=== PATIENT | female | born 1945 | race Caucasian/White ===

== ENCOUNTER 2024-01-14 09:27 | Inpatient (IN) ==
--- NOTE | 2024-01-14 09:55 | EKG ---
Test Reason : tachy Blood Pressure : */* mmHG Vent. Rate : 140 BPM Atrial Rate : * BPM P-R Int : * ms QRS Dur : 82 ms QT Int : 260 ms P-R-T Axes : * 2 257 degrees QTc Int : 396 ms Atrial fibrillation with rapid ventricular response Nonspecific ST and T wave abnormality Abnormal ECG No previous ECGs available Confirmed by Mikel Orantes MD ([id number]) on 01/14/2024 10:37:04 AM Referred By: Confirmed By: Mikel Orantes MD
--- NOTE | 2024-01-14 09:57 | DR.SOBA ---
HPI Time Seen Time Seen by Provider: 01/14/24 09:45 Primary Care Physician Primary Care Physician: kobe morrow Complaints Chief Complaint Doctors Comments: 78-year-old female presents for evaluation. Patient feeling poorly over the past week. Has had a pain of the right side of the chest/abdomen, off and on. Having difficulty sleeping with it. Having palpitations since yesterday. Having shortness of breath since yesterday. Shortness of breath worse with exertion. Does have swelling of her legs, over the past month. Not coughing much. Denies fevers or chills. No sinus congestion, sore throat. No bowel or bladder issues. Does have a history of atrial fibrillation, has a pacemaker. Chief Complaint:: Patient c/o of sob with exertion for a week now along with sobeida lower ext swelling that has been going on for a month now nauseous/ decrease appetite. pain in her ruq area that has been coming and going for years now states she was told 30 years ago she had a bad gallbladder but never got it seen about. COVID-19 Coronavirus risk:travel/contact w/high risk person: No Has patient experienced Coronavirus symptoms: No Reviewed Nurses Notes Reviewed: Yes Source History Provided: Patient Mode of Arrival Mode of Arrival: Wheelchair Timing Onset of Chief Complaint: 01/07/24 PMH PMH Past Medical History: Yes Past Medical History: Hypertension Past Medical History Comment: a-fib,fibermyalgia, pacemaker Past Surgical History: Yes Surgical History: Tonsillectomy Past Surgical History Comment: pacemaker, cataracts sobeida eyes Family History History of Family Medical Conditions: Yes Family Medical History: Diabetes Mellitus, Heart Failure and Hypertension Social History Does patient currently use any type of tobacco product: No Have you used tobacco products in the last 12 months: No Type of Tobacco Use: None Does any household member use tobacco: No Alcohol Use: None Do you use any recreational Drugs:: No Lives With: Family Lives Where: Home Travel Risk Coronavirus risk:travel/contact w/high risk person: No Has patient experienced Coronavirus symptoms: No Infectious screening In the last 2 months have you had wt loss of >10#?: NO Have you had fever, night sweats or hemotysis?: No Have you traveled outside the country in the last 6 months?: No Isolation: Standard ROS Review of Systems Constitutional: Weakness Eyes: No Symptoms Reported ENTM: No Symptoms Reported Respiratoy: Short of Breath Cardiovascular: Edema and Palpitations Gastrointestinal/Abdominal: No Symptoms Reported Genitourinary: No Symptoms Reported Neurological: Weakness Musculoskeletal: No Symptoms Reported Integumentary: No Symptoms Reported Hematologic/Lymphatic: No Symptoms Reported All Other Systems: Reviewed and Negative PE Vital Signs Vitals: Vital Signs Temperature 98.1 F Pulse Rate 118 Pulse Rate 104 Pulse Rate 105 Pulse Rate 101 Pulse Rate 130 Pulse Rate 123 Pulse Rate 129 Pulse Rate 124 Pulse Rate 127 Pulse Rate 135 Pulse Rate 125 Pulse Rate 109 Pulse Rate 113 Pulse Rate 113 Pulse Rate 120 Pulse Rate 118 Pulse Rate 108 Pulse Rate 111 Pulse Rate 116 Pulse Rate 107 Pulse Rate 105 Pulse Rate 108 Pulse Rate 115 Pulse Rate 144 Pulse Rate 145 Respiratory Rate 31 Respiratory Rate 15 Respiratory Rate 10 Respiratory Rate 12 Respiratory Rate 8 Respiratory Rate 12 Respiratory Rate 12 Respiratory Rate 13 Respiratory Rate 10 Respiratory Rate 24 Respiratory Rate 25 Respiratory Rate 8 Respiratory Rate 17 Respiratory Rate 13 Respiratory Rate 11 Respiratory Rate 21 Respiratory Rate 13 Respiratory Rate 10 Respiratory Rate 22 Blood Pressure 103/52 Blood Pressure 99/57 Blood Pressure 95/53 Blood Pressure 92/53 Blood Pressure 92/53 Blood Pressure 96/52 Blood Pressure 96/52 Blood Pressure 93/52 Blood Pressure 93/52 Blood Pressure 96/58 Blood Pressure 91/63 Blood Pressure 98/51 Blood Pressure 90/57 Blood Pressure 103/50 Blood Pressure 103/50 Blood Pressure 88/50 Blood Pressure 96/62 Blood Pressure 84/50 Blood Pressure 81/52 Blood Pressure 96/52 Blood Pressure 91/64 Blood Pressure 98/56 O2 Sat by Pulse Oximetry 99 O2 Sat by Pulse Oximetry 100 O2 Sat by Pulse Oximetry 100 O2 Sat by Pulse Oximetry 100 O2 Sat by Pulse Oximetry 100 O2 Sat by Pulse Oximetry 100 O2 Sat by Pulse Oximetry 100 O2 Sat by Pulse Oximetry 100 O2 Sat by Pulse Oximetry 100 O2 Sat by Pulse Oximetry 100 O2 Sat by Pulse Oximetry 100 O2 Sat by Pulse Oximetry 100 O2 Sat by Pulse Oximetry 100 O2 Sat by Pulse Oximetry 100 O2 Sat by Pulse Oximetry 100 O2 Sat by Pulse Oximetry 100 O2 Sat by Pulse Oximetry 100 O2 Sat by Pulse Oximetry 99 O2 Sat by Pulse Oximetry 100 O2 Sat by Pulse Oximetry 100 O2 Sat by Pulse Oximetry 100 O2 Sat by Pulse Oximetry 100 O2 Sat by Pulse Oximetry 99 O2 Sat by Pulse Oximetry 100 General General Appearance: Alert and In No Apparent Distress Eyes Eye exam: PERRL and EOMI ENT ENT Exam: Normal Exam Neck Neck Exam: Normal Inspection Respiratory Respiratory Exam: Other (+ slight rales R base) Cardiovascular Cardiovascular Exam: Tachycardia Abdominal Exam Abdominal Exam: Normal Bowel Sounds and Soft; negative Tenderness Extremities Extremities Exam: Edema (2-3+, bilateral lower exts) Back Back Exam: Normal Inspection Neurologic Neurological Exam: Alert, Oriented X3 and CN II-XII Intact; negative Motor Sensory Deficit Skin Skin Exam: Warm and Dry COURSE Treatment Treatment: 78-year female with palpitations and shortness of breath. Patient presents with atrial fibrillation rapid ventricular response. Heart rate running in the 140s. Patient given 10 mg of IV Cardizem with good effect. Heart rate down to the low 100s. Chest x-ray without significant pulmonary vascular congestion. Hgb low at 5. Pt was told she had anemia, taking iron. Stools have been dark, pt thought from iron. Will admit for transfusion. Additional cardizem given for rate control. Added IV metoprolol (didn't take her po metoprolol today). Also with UTI, given IV rocephin. Discussed with covering MD, Dr Doan accepts the admission. [facility] Labs Reviewed Laboratory Results Reviewed?: Yes 01/14/24 10:05 01/14/24 10:05 Laboratory: WBC 7.7 X10^3/uL (3.6-10.0) 01/14/24 10:05 RBC 1.60 X10^6/uL (3.5-5.4) L 01/14/24 10:05 Hgb 5.0 g/dL (12.0-16.0) L* 01/14/24 10:05 Hct 15.1 % (36.0-47.0) L* 01/14/24 10:05 MCV 94.1 fL (80.0-100.0) 01/14/24 10:05 MCH 31.3 pg (27.0-34.0) 01/14/24 10:05 MCHC 33.2 g/dL (33.0-35.0) 01/14/24 10:05 RDW 19.4 % (11.6-16.5) H 01/14/24 10:05 Plt Count 212 X10^3/uL (150.0-450.0) 01/14/24 10:05 MPV 10.7 fL (7.4-11.0) 01/14/24 10:05 Neut % (Auto) 69.9 % (42.0-75.0) 01/14/24 10:05 Lymph % (Auto) 21.3 % (21.0-51.0) 01/14/24 10:05 [place] % (Auto) 7.1 % (0.0-13.0) 01/14/24 10:05 Eos % (Auto) 0.8 % (0.9-2.9) L 01/14/24 10:05 Baso % (Auto) 0.9 % (0.2-1.0) 01/14/24 10:05 Neut # (Auto) 5.4 x10^3/uL (2.2-4.8) H 01/14/24 10:05 Lymph # (Auto) 1.6 X10^3/uL (1.3-2.9) 01/14/24 10:05 [place] # (Auto) 0.5 x10^3/uL (0.3-0.8) 01/14/24 10:05 Eos # (Auto) 0.1 x10^3/uL (0.0-0.2) 01/14/24 10:05 Baso # (Auto) 0.1 X10^3/uL (0.0-0.1) 01/14/24 10:05 Absolute Nucleated RBC 0.1 /100WBC 01/14/24 10:05 Sodium 142 mmol/L (136-145) 01/14/24 10:05 Corrected Sodium 143 mmol/L (136-145) 01/14/24 10:05 Potassium 3.9 mmol/L (3.5-5.1) 01/14/24 10:05 Chloride 106 mmol/L (98-107) 01/14/24 10:05 Carbon Dioxide 30.5 mmol/L (21-32) 01/14/24 10:05 BUN 39 mg/dL (7-18) H 01/14/24 10:05 Creatinine 1.66 mg/dL (0.55-1.02) H 01/14/24 10:05 Est GFR (MDRD) Af Amer 39 (>60) L 01/14/24 10:05 Est GFR (MDRD) Non-Af 32 (>60) L 01/14/24 10:05 Glucose 138 mg/dL (65-99) H 01/14/24 10:05 Calcium 7.7 mg/dL (8.5-10.1) L 01/14/24 10:05 Corrected Calcium 9.4 mg/dL (8.5-10.1) 01/14/24 10:05 Total Bilirubin 1.00 mg/dL (0.2-1.0) 01/14/24 10:05 AST 35 Units/L (15-37) 01/14/24 10:05 ALT 17 Units/L (12-78) 01/14/24 10:05 Alkaline Phosphatase 64 Units/L (46-116) 01/14/24 10:05 Creatine Kinase 51 Units/L (26-192) 01/14/24 10:05 Troponin I High Sens 12.0 ng/L (4.0-60.0) 01/14/24 10:05 B-Natriuretic Peptide 301 pg/mL (0-79) H 01/14/24 10:05 Total Protein 5.6 g/dL (6.4-8.2) L 01/14/24 10:05 Albumin 1.9 g/dL (3.4-5.0) L 01/14/24 10:05 Globulin 3.7 g/dL (2.5-4.5) 01/14/24 10:05 Albumin/Globulin Ratio 0.5 Ratio (1.1-2.1) L 01/14/24 10:05 Specimen Type Clean catch urine 01/14/24 11:48 Urine Color Yellow (YELLOW) 01/14/24 11:48 Urine Appearance Hazy (CLEAR) 01/14/24 11:48 Urine pH 5.0 (5.0 - 8.0) 01/14/24 11:48 Ur Specific [place] 1.015 (1.000-1.030) 01/14/24 11:48 Urine Protein 2+ (NEGATIVE) 01/14/24 11:48 Urine Glucose (UA) Negative (NEGATIVE) 01/14/24 11:48 Urine Ketones Negative (NEGATIVE) 01/14/24 11:48 Urine Blood 1+ (NEGATIVE) 01/14/24 11:48 Urine Nitrite Negative (NEGATIVE) 01/14/24 11:48 Urine Bilirubin Negative (NEGATIVE) 01/14/24 11:48 Urine Urobilinogen Normal (NORMAL) 01/14/24 11:48 Ur Leukocyte Esterase 3+ (NEGATIVE) 01/14/24 11:48 Urine RBC 3-5 /HPF (0-3) A 01/14/24 11:48 Urine WBC 20-30 /HPF (0-5) A 01/14/24 11:48 Ur Squamous Epith Cells Rare /HPF (NEGATIVE) 01/14/24 11:48 Amorphous Sediment 1+ /HPF (NEGATIVE) 01/14/24 11:48 Urine Bacteria 1+ /HPF (NEGATIVE) 01/14/24 11:48 Urine Mucus Rare /HPF (NEGATIVE) 01/14/24 11:48 Ur Culture Indicated? Yes/culture set up 01/14/24 11:48 Blood Type A POSITIVE 01/14/24 10:25 Antibody Screen Negative 01/14/24 10:25 Crossmatch See Detail 01/14/24 10:25 Hgb 5.0, + UTI. XRAY XRAY Interpreted by: Both X-ray Results: EXAM: CHEST, 1 VIEW HISTORY: Shortness of Breath; COMPARISON: No relevant prior studies were available for comparison at the time of interpretation. TECHNIQUE: CHEST, 1 VIEW FINDINGS: Chest: Lines and tubes: Left-sided pacemaker generator with lead or leads in satisfactory position. Mediastinum: Cardiac and mediastinal shadow is within normal limits for size and contour. Pulmonary vessels: No pulmonary vascular congestion. Lung fowler: No suspicious airspace opacity. Pleura: No effusion. No pneumothorax. Bones and soft tissues: No acute osseous or soft tissue abnormality. IMPRESSION: 1. No acute cardiopulmonary abnormality THIS IS AN ELECTRONICALLY VERIFIED FINAL REPORT 01/14/2024 10:51 AM - Electronically signed by Reinaldo Thompson MD EKG Rate: 140 [place]: Normal Rhythm: Afib (w/RVR) ST: Nonsp Opioid Opioid Risk Tool Age (Ishaan box if 16-45): No History of Preadolescent Sexual Abuse: No Total: 0 Total Score Risk Category: Low Risk Copyright: Serjio CHASE predicting aberrant behaviors Discharge Plan Diagnosis Discharge Problem: Symptomatic anemia, Atrial fibrillation with rapid ventricular response Discharge Plan Patient Disposition: ADMITTED INPATIENT Condition: Stable Orders to Discharge Patient Discharge Orders: Transfer (Routine); Ordered 01/14/24 Ordered By: Lenard Mendoza
[2024-01-14] MEDS: CARDIZEM INJ 50 MG VIAL IVP ONE ×2 (10:07→12:28)
[2024-01-14] MEDS: NS 500 ML IV 500 ML IV SCH (10:08)
[2024-01-14 10:29] LABS: ALBUMIN 1.9 g/dL (3.4-5.0); CALCIUM 7.7 mg/dL (8.5-10.1); CARBON DIOXIDE 30.5 mmol/L (21-32); COR CA(FOR HYPOALB) 9.4 mg/dL (8.5-10.1); CREATININE 1.66 mg/dL (0.55-1.02); POTASSIUM 3.9 mmol/L (3.5-5.1); TOTAL PROTEIN 5.6 g/dL (6.4-8.2)
[2024-01-14 10:36] LABS: BASOPHILS # (AUTO) 0.1 X10^3/uL (0.0-0.1); BASOPHILS % (AUTO) 0.9 % (0.2-1.0); EOSINOPHILS # (AUTO) 0.1 x10^3/uL (0.0-0.2); EOSINOPHILS % (AUTO) 0.8 % (0.9-2.9); LYMPHOCYTES # (AUTO) 1.6 X10^3/uL (1.3-2.9); LYMPHOCYTES % (AUTO) 21.3 % (21.0-51.0); MEAN CORPUSCULAR HEMOGLOBIN 31.3 pg (27.0-34.0); MEAN CORPUSCULAR HGB CONC 33.2 g/dL (33.0-35.0); MEAN CORPUSCULAR VOLUME 94.1 fL (80.0-100.0); MEAN PLATELET VOLUME 10.7 fL (7.4-11.0); MONOCYTES # (AUTO) 0.5 x10^3/uL (0.3-0.8); MONOCYTES % (AUTO) 7.1 % (0.0-13.0); NEUTROPHILS # (AUTO) 5.4 x10^3/uL (2.2-4.8); NEUTROPHILS % (AUTO) 69.9 % (42.0-75.0); PLATELET COUNT 212 X10^3/uL (150.0-450.0); RED CELL DISTRIBUTION WIDTH 19.4 % (11.6-16.5); WHITE BLOOD COUNT 7.7 X10^3/uL (3.6-10.0)
[2024-01-14 10:38] LABS: HEMATOCRIT 15.1 % (36.0-47.0)
--- NOTE | 2024-01-14 10:54 | RAD ---
EXAM:CHEST, 1 VIEWHISTORY:Shortness of Breath;COMPARISON:No relevant prior studies were available for comparison at the time of interpretation.TECHNIQUE:CHEST, 1 VIEWFINDINGS:Chest:Lines and tubes: Left-sided pacemaker generator with lead or leads in satisfactory position.Mediastinum: Cardiac and mediastinal shadow is within normal limits for size and contour.Pulmonary vessels: No pulmonary vascular congestion.Lung fowler: No suspicious airspace opacity.Pleura: No effusion. No pneumothorax.Bones and soft tissues: No acute osseous or soft tissue abnormality.IMPRESSION:1. No acute cardiopulmonary abnormalityTHIS IS AN ELECTRONICALLY VERIFIED FINAL REPORT01/14/2024 10:51 AM - Electronically signed by Reinaldo Thompson MD
[2024-01-14 12:00] LABS: BILIRUBIN,URINE NEGATIVE (NEGATIVE); BLOOD/HEMOGLOBIN,URINE 1+ (NEGATIVE); GLUCOSE, URINE NEGATIVE (NEGATIVE); KETONES,URINE NEGATIVE (NEGATIVE); LEUKOCYTE ESTERASE ,URINE 3+ (NEGATIVE); NITRITES,URINE NEGATIVE (NEGATIVE); PROTEIN,URINE 2+ (NEGATIVE); UROBILINOGEN,URINE NORMAL (NORMAL)
[2024-01-14 12:03] LABS: APPEARANCE,URINE HAZY (CLEAR); COLOR,URINE YELLOW (YELLOW)
[2024-01-14 12:08] LABS: SQUAMOUS EPITHELIAL CELL,UR RARE /HPF (NEGATIVE)
[2024-01-14 12:09] LABS: BACTERIA,URINE 1+ /HPF (NEGATIVE)
[2024-01-14] MEDS: ROCEPHIN VIAL 1 GRAM IVP ONE (12:28)
[2024-01-14] MEDS: LOPRESSOR INJ 5 MG AMP IVP ONE (13:01)
[2024-01-14] MEDS ORDERED: TOPROL XL PO ONE (14:30)
[2024-01-14] MEDS: TOPROL XL PO SCH (15:06)
[2024-01-14] MEDS: NS 500 ML IV 500 ML IV ONE (15:07)
[2024-01-14 15:43] VITALS: BMI 33.7
[2024-01-14] MEDS ORDERED: TYLENOL 325 MG TAB PO PRN (16:38)
[2024-01-14] MEDS: ROCEPHIN VIAL 1 GRAM 1 G in NS 100 ML IV 100 ML IV SCH (16:40)
[2024-01-14] MEDS: MAG-OX TAB PO SCH (20:20)
[2024-01-14] MEDS: XARELTO PO SCH (20:21)
[2024-01-14] MEDS: RESTORIL CAP 15 MG PO PRN (21:20)
[2024-01-15 00:09] LABS: HEMATOCRIT 19.3 % (36.0-47.0); HEMOGLOBIN 6.4 g/dL (12.0-16.0)
[2024-01-15] MEDS: NS 500 ML IV 1,000 ML IV SCH (05:03)
[2024-01-15 05:19] LABS: EOSINOPHILS # (AUTO) 0.1 x10^3/uL (0.0-0.2); MEAN CORPUSCULAR VOLUME 90.6 fL (80.0-100.0); MONOCYTES # (AUTO) 0.6 x10^3/uL (0.3-0.8); NEUTROPHILS # (AUTO) 4.3 x10^3/uL (2.2-4.8)
[2024-01-15 05:25] LABS: BASOPHILS # (AUTO) 0.1 X10^3/uL (0.0-0.1); BASOPHILS % (AUTO) 0.8 % (0.2-1.0); EOSINOPHILS % (AUTO) 1.7 % (0.9-2.9); LYMPHOCYTES # (AUTO) 1.9 X10^3/uL (1.3-2.9); LYMPHOCYTES % (AUTO) 27.1 % (21.0-51.0); MEAN CORPUSCULAR HEMOGLOBIN 30.5 pg (27.0-34.0); MEAN CORPUSCULAR HGB CONC 33.7 g/dL (33.0-35.0); MEAN PLATELET VOLUME 10.9 fL (7.4-11.0); MONOCYTES % (AUTO) 8.5 % (0.0-13.0); NEUTROPHILS % (AUTO) 61.9 % (42.0-75.0); PLATELET COUNT 168 X10^3/uL (150.0-450.0); RED BLOOD COUNT 1.96 X10^6/uL (3.5-5.4); RED CELL DISTRIBUTION WIDTH 18.3 % (11.6-16.5); WHITE BLOOD COUNT 6.9 X10^3/uL (3.6-10.0)
[2024-01-15 05:32] LABS: ALANINE AMINOTRANSFERASE 15 Units/L (12-78); ALBUMIN 1.7 g/dL (3.4-5.0); ALKALINE PHOSPHATASE 50 Units/L (46-116); ASPARTATE AMINO TRANSFERASE 31 Units/L (15-37); BLOOD UREA NITROGEN 39 mg/dL (7-18); CALCIUM 7.6 mg/dL (8.5-10.1); CARBON DIOXIDE 30.6 mmol/L (21-32); CHLORIDE 108 mmol/L (98-107); COR CA(FOR HYPOALB) 9.4 mg/dL (8.5-10.1); CREATININE 1.56 mg/dL (0.55-1.02); GLUCOSE 104 mg/dL (65-99); MAGNESIUM 2.6 mg/dL (2.0-2.9); POTASSIUM 3.9 mmol/L (3.5-5.1); SODIUM 143 mmol/L (136-145); eGFR NON BLACK RACES 34 (>60)
[2024-01-15 06:04] LABS: HEMATOCRIT 17.7 % (36.0-47.0)
[2024-01-15] MEDS: CONSULT PHARMACY - POTASSIUM & MAGNESIUM XX SCH ×2 (07:23)
[2024-01-15 08:09] LABS: RETICULOCYTE % 6.51 % (0.8-2.2)
[2024-01-15] MEDS: FERROUS GLUCONATE PO SCH (09:01)
[2024-01-15] MEDS: IMDUR PO SCH (09:01)
[2024-01-15] MEDS: K-DUR TAB 20 MEQ PO SCH (09:02)
[2024-01-15 11:05] LABS: INR 6.64 (0.8-1.3)
[2024-01-15] MEDS: LASIX IVP SCH (11:05)
[2024-01-15] MEDS: INJECTAFER 750 MG in NS 250 ML IV 250 ML IV NR (11:06)
[2024-01-15] MEDS: PROTONIX INJ 40 MG VIAL IVP SCH (11:06)
--- NOTE | 2024-01-15 19:43 | DR.H&P ---
H&P History & Physical for Day of: H&P Date: 01/14/24 Chief Complaint Chief Complaint: WEAKNESS, SOB, BLACK STOOL AND LOWER LEG SWELLNG History of Present Illness History of Present Illness: This is a 78-year-old female who was an ER admission after presenting with co feeling weak and tired over the past few weeks. The patient was seen at another institution with anemia. She was discharged on iron pills. Since then, the patient was having black stool. Actually, the black stool was even before taking the pills. She stopped taking these pills and is still having black tarry stool. The patient was complaining of epigastric pain. The patient is admitted at this time with symptomatic anemia. She denies any nausea or vomiting. No known history of peptic ulcer disease in the past. The patient is not taking any NSAID medication, but she is taking anticoagulant Xarelto as part of her treatment of AFIB. Pts HGB in ER was 5.0. Pt was admitted for evaluation and treatment of GI bleed and symptomatic anemia Past Medical History Past Medical History: Hypertension Past Surgical History Surgical History: Tonsillectomy and Other Family History Family Medical History: Diabetes Mellitus, Heart Failure and Hypertension Social History Does patient currently use any type of tobacco product: No Have you used tobacco products in the last 12 months: No Type of Tobacco Use: None Does any household member use tobacco: No Alcohol Use: None Drug Use: None Medications Home Medications: Home Medications Medication Instructions Recorded Confirmed Type ferrous sulfate 325 mg (65 mg 325 mg PO QDAY 12/26/23 01/14/24 History iron) tablet (Feosol) furosemide 80 mg tablet (Lasix) 80 mg PO QDAY 12/26/23 01/14/24 History metoprolol succinate 100 mg 100 mg PO Q24H 12/26/23 01/14/24 History capsule sprinkle, ext. release 24 hr potassium chloride 20 mEq 20 meq PO QDAY 12/26/23 01/14/24 History tablet,extended release(part/cryst) Allergies Allergies Allergy/AdvReac Type Severity Reaction Status Date / Time No Known Allergies Allergy Verified 12/26/23 09:55 Labs 01/15/24 05:50 01/15/24 04:03 Labs: 01/14/24 11:48 Urine,Clean Catch Urine Culture - Preliminary Laboratory WBC 6.9 X10^3/uL (3.6-10.0) 01/15/24 05:50 RBC 1.96 X10^6/uL (3.5-5.4) L 01/15/24 05:50 Hgb 6.0 g/dL (12.0-16.0) L* 01/15/24 05:50 Hct 17.7 % (36.0-47.0) L* 01/15/24 05:50 MCV 90.6 fL (80.0-100.0) 01/15/24 05:50 MCH 30.5 pg (27.0-34.0) 01/15/24 05:50 MCHC 33.7 g/dL (33.0-35.0) 01/15/24 05:50 RDW 18.3 % (11.6-16.5) H 01/15/24 05:50 Plt Count 168 X10^3/uL (150.0-450.0) 01/15/24 05:50 MPV 10.9 fL (7.4-11.0) 01/15/24 05:50 Neut % (Auto) 61.9 % (42.0-75.0) 01/15/24 05:50 Lymph % (Auto) 27.1 % (21.0-51.0) 01/15/24 05:50 [place] % (Auto) 8.5 % (0.0-13.0) 01/15/24 05:50 Eos % (Auto) 1.7 % (0.9-2.9) 01/15/24 05:50 Baso % (Auto) 0.8 % (0.2-1.0) 01/15/24 05:50 Neut # (Auto) 4.3 x10^3/uL (2.2-4.8) 01/15/24 05:50 Lymph # (Auto) 1.9 X10^3/uL (1.3-2.9) 01/15/24 05:50 [place] # (Auto) 0.6 x10^3/uL (0.3-0.8) 01/15/24 05:50 Eos # (Auto) 0.1 x10^3/uL (0.0-0.2) 01/15/24 05:50 Baso # (Auto) 0.1 X10^3/uL (0.0-0.1) 01/15/24 05:50 Absolute Nucleated RBC 0.1 /100WBC 01/15/24 05:50 Absolute Retic 0.1260 10^6/uL 01/15/24 04:03 Percent Retic 6.51 % (0.8-2.2) H 01/15/24 04:03 PT 55.1 SECONDS (11.8-14.3) 01/15/24 10:35 INR Target Range - 01/15/24 10:35 INR 6.64 (0.8-1.3) H* 01/15/24 10:35 Sodium 143 mmol/L (136-145) 01/15/24 04:03 Corrected Sodium TNP 01/15/24 04:03 Potassium 3.9 mmol/L (3.5-5.1) 01/15/24 04:03 Chloride 108 mmol/L (98-107) H 01/15/24 04:03 Carbon Dioxide 30.6 mmol/L (21-32) 01/15/24 04:03 BUN 39 mg/dL (7-18) H 01/15/24 04:03 Creatinine 1.56 mg/dL (0.55-1.02) H 01/15/24 04:03 Est GFR (MDRD) Af Amer 41 (>60) L 01/15/24 04:03 Est GFR (MDRD) Non-Af 34 (>60) L 01/15/24 04:03 Glucose 104 mg/dL (65-99) H 01/15/24 04:03 Calcium 7.6 mg/dL (8.5-10.1) L 01/15/24 04:03 Corrected Calcium 9.4 mg/dL (8.5-10.1) 01/15/24 04:03 Magnesium 2.6 mg/dL (2.0-2.9) 01/15/24 04:03 Iron 69 ug/dL (50-175) 01/15/24 08:10 TIBC 229 ug/dL (250-450) L 01/15/24 08:10 Transferrin 181 mg/dL (202-364) L 01/15/24 08:10 Ferritin 23 ng/mL (8-252) 01/15/24 08:10 Total Bilirubin 1.60 mg/dL (0.2-1.0) H 01/15/24 04:03 AST 31 Units/L (15-37) 01/15/24 04:03 ALT 15 Units/L (12-78) 01/15/24 04:03 Alkaline Phosphatase 50 Units/L (46-116) 01/15/24 04:03 Creatine Kinase 51 Units/L (26-192) 01/14/24 10:05 Troponin I High Sens 12.0 ng/L (4.0-60.0) 01/14/24 10:05 B-Natriuretic Peptide 301 pg/mL (0-79) H 01/14/24 10:05 Total Protein 5.0 g/dL (6.4-8.2) L 01/15/24 04:03 Albumin 1.7 g/dL (3.4-5.0) L 01/15/24 04:03 Globulin 3.3 g/dL (2.5-4.5) 01/15/24 04:03 Albumin/Globulin Ratio 0.5 Ratio (1.1-2.1) L 01/15/24 04:03 Vitamin B12 772 pg/mL (193-986) 01/15/24 08:10 Folate 4.3 ng/mL (>8.6) L 01/15/24 08:10 Specimen Type Clean catch urine 01/14/24 11:48 Urine Color Yellow (YELLOW) 01/14/24 11:48 Urine Appearance Hazy (CLEAR) 01/14/24 11:48 Urine pH 5.0 (5.0 - 8.0) 01/14/24 11:48 Ur Specific [place] 1.015 (1.000-1.030) 01/14/24 11:48 Urine Protein 2+ (NEGATIVE) 01/14/24 11:48 Urine Glucose (UA) Negative (NEGATIVE) 01/14/24 11:48 Urine Ketones Negative (NEGATIVE) 01/14/24 11:48 Urine Blood 1+ (NEGATIVE) 01/14/24 11:48 Urine Nitrite Negative (NEGATIVE) 01/14/24 11:48 Urine Bilirubin Negative (NEGATIVE) 01/14/24 11:48 Urine Urobilinogen Normal (NORMAL) 01/14/24 11:48 Ur Leukocyte Esterase 3+ (NEGATIVE) 01/14/24 11:48 Urine RBC 3-5 /HPF (0-3) A 01/14/24 11:48 Urine WBC 20-30 /HPF (0-5) A 01/14/24 11:48 Ur Squamous Epith Cells Rare /HPF (NEGATIVE) 01/14/24 11:48 Amorphous Sediment 1+ /HPF (NEGATIVE) 01/14/24 11:48 Urine Bacteria 1+ /HPF (NEGATIVE) 01/14/24 11:48 Urine Mucus Rare /HPF (NEGATIVE) 01/14/24 11:48 Ur Culture Indicated? Yes/culture set up 01/14/24 11:48 Stl Occult Blood (IFOB) Positive (NEGATIVE) A 01/15/24 08:55 Blood Type A POSITIVE 01/14/24 10:25 Antibody Screen Negative 01/14/24 10:25 Crossmatch See Detail 01/14/24 10:25 Review of Systems Constitutional: Weakness and Malaise Eyes: No Symptoms Reported Respiratory: Shortness of Breath Cardiovascular: Palpitations and Edema Gastrointestinal: Abdominal Pain and Melena Genitourinary: No Symptoms Reported Musculoskeletal: Back Pain Skin: No Symptoms Reported Neurological: Weakness (bilateral lower extremity weakness) Physical Exam Vital Signs: Vital Signs Temperature 98.3 F Temperature 98.1 F Pulse Rate 102 Pulse Rate 100 Pulse Rate 96 Pulse Rate 109 Pulse Rate 104 Pulse Rate 91 Pulse Rate 91 Pulse Rate 92 Pulse Rate 93 Pulse Rate 104 Pulse Rate 100 Pulse Rate 101 Pulse Rate 104 Pulse Rate 104 Pulse Rate 102 Pulse Rate 102 Pulse Rate 108 Pulse Rate 99 Pulse Rate 98 Pulse Rate 98 Pulse Rate 96 Pulse Rate 99 Pulse Rate 103 Pulse Rate 103 Pulse Rate 100 Pulse Rate 100 Pulse Rate 101 Pulse Rate 104 Pulse Rate 109 Pulse Rate 106 Respiratory Rate 28 Respiratory Rate 30 Respiratory Rate 23 Respiratory Rate 25 Respiratory Rate 29 Respiratory Rate 22 Respiratory Rate 27 Respiratory Rate 29 Respiratory Rate 30 Respiratory Rate 31 Respiratory Rate 22 Respiratory Rate 28 Respiratory Rate 32 Respiratory Rate 39 Respiratory Rate 30 Respiratory Rate 31 Respiratory Rate 32 Respiratory Rate 22 Respiratory Rate 28 Respiratory Rate 28 Respiratory Rate 26 Respiratory Rate 21 Respiratory Rate 26 Respiratory Rate 29 Respiratory Rate 16 Respiratory Rate 20 Respiratory Rate 30 Respiratory Rate 18 Respiratory Rate 24 Respiratory Rate 15 Blood Pressure 91/52 Blood Pressure 89/51 Blood Pressure 89/62 Blood Pressure 96/50 Blood Pressure 91/51 Blood Pressure 91/51 Blood Pressure 84/52 Blood Pressure 84/52 Blood Pressure 93/65 Blood Pressure 102/60 O2 Sat by Pulse Oximetry 99 O2 Sat by Pulse Oximetry 100 O2 Sat by Pulse Oximetry 100 O2 Sat by Pulse Oximetry 99 O2 Sat by Pulse Oximetry 96 O2 Sat by Pulse Oximetry 100 O2 Sat by Pulse Oximetry 100 O2 Sat by Pulse Oximetry 100 O2 Sat by Pulse Oximetry 100 O2 Sat by Pulse Oximetry 100 O2 Sat by Pulse Oximetry 100 O2 Sat by Pulse Oximetry 100 O2 Sat by Pulse Oximetry 100 O2 Sat by Pulse Oximetry 99 O2 Sat by Pulse Oximetry 99 O2 Sat by Pulse Oximetry 100 O2 Sat by Pulse Oximetry 100 O2 Sat by Pulse Oximetry 100 O2 Sat by Pulse Oximetry 100 O2 Sat by Pulse Oximetry 100 O2 Sat by Pulse Oximetry 100 O2 Sat by Pulse Oximetry 100 O2 Sat by Pulse Oximetry 100 O2 Sat by Pulse Oximetry 95 O2 Sat by Pulse Oximetry 100 O2 Sat by Pulse Oximetry 100 O2 Sat by Pulse Oximetry 100 O2 Sat by Pulse Oximetry 100 O2 Sat by Pulse Oximetry 100 O2 Sat by Pulse Oximetry 100 Oriented: Normal Eyes: Normal Nose: Normal Throat: Dry Respiratory: RLL Diminished and LLL Diminished Cardiovascular: Tachycardia and Edema Auscultation: Bowel Sounds: Normal Tenderness: Epigastric Skin: Other (diffuse pallor) Psychiatric: Anxiety Mood Description: Anxious Speech Pattern: Clear and Appropriate Assessment/Plan (1) Symptomatic anemia: Status: Acute (2) Atrial fibrillation with rapid ventricular response: Status: Acute Plan: ADMIT, ICU TYPE/CROSS AND TRANSFUSE PRBC PER PROTCOL ANEMIA PANEL FROM ADMISSION LABS, OCCULT STOOL BP CONTROL, VERIFY HOME MEDICATION CARDIAC RATE CONTROL, SUPPLEMENTAL O2 HOLD NSAIDS, ANTICOAGULANTS (3) Lower extremity edema: Status: Acute (4) GI bleed: Status: Acute (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
--- NOTE | 2024-01-15 19:49 | PCM.PROG ---
Progress Note Progress Note for Day of Date of Exam: 01/15/24 Subjective Subjective: This is a 78-year-old female who was an ER admission after presenting with co feeling weak and tired over the past few weeks. The patient was seen at another institution with anemia. She was discharged on iron pills. Since then, the patient was having black stool. Actually, the black stool was even before taking the pills. She stopped taking these pills and is still having black tarry stool. The patient was complaining of epigastric pain. The patient is admitted at this time with symptomatic anemia. She denies any nausea or vomiting. No known history of peptic ulcer disease in the past. The patient is not taking any NSAID medication, but she is taking anticoagulant Xarelto as part of her treatment of AFIB. Pts HGB in ER was 5.0. Pt was admitted for evaluation and treatment of GI bleed and treatment of AFIB with RVR. Pt has received 2 units prbc, with hgb 6.0 and positive occult stool. Pt is on protonix 40mg IV bid, Dr Khan consulted for GI bleed. Pts xarelto is on hold due to anemia and GI bleeding. Nursing staff instructed to monitor BP prior to given antihypertensives. Pt denies any chest pain on examination this AM but reports she is very fatigued. BUn 39,creat 1.56 on labs. Past Medical Family Social History Allergies: Allergies No Known Allergies Allergy (Verified 12/26/23 09:55) Vital Signs and I&O's Vital Signs: Vital Signs Temperature 98.3 F Temperature 98.1 F Pulse Rate 102 Pulse Rate 100 Pulse Rate 96 Pulse Rate 109 Pulse Rate 104 Pulse Rate 91 Pulse Rate 91 Pulse Rate 92 Pulse Rate 93 Pulse Rate 104 Pulse Rate 100 Pulse Rate 101 Pulse Rate 104 Pulse Rate 104 Pulse Rate 102 Pulse Rate 102 Pulse Rate 108 Pulse Rate 99 Pulse Rate 98 Pulse Rate 98 Pulse Rate 96 Pulse Rate 99 Pulse Rate 103 Pulse Rate 103 Pulse Rate 100 Pulse Rate 100 Pulse Rate 101 Pulse Rate 104 Pulse Rate 109 Pulse Rate 106 Respiratory Rate 28 Respiratory Rate 30 Respiratory Rate 23 Respiratory Rate 25 Respiratory Rate 29 Respiratory Rate 22 Respiratory Rate 27 Respiratory Rate 29 Respiratory Rate 30 Respiratory Rate 31 Respiratory Rate 22 Respiratory Rate 28 Respiratory Rate 32 Respiratory Rate 39 Respiratory Rate 30 Respiratory Rate 31 Respiratory Rate 32 Respiratory Rate 22 Respiratory Rate 28 Respiratory Rate 28 Respiratory Rate 26 Respiratory Rate 21 Respiratory Rate 26 Respiratory Rate 29 Respiratory Rate 16 Respiratory Rate 20 Respiratory Rate 30 Respiratory Rate 18 Respiratory Rate 24 Respiratory Rate 15 Blood Pressure 91/52 Blood Pressure 89/51 Blood Pressure 89/62 Blood Pressure 96/50 Blood Pressure 91/51 Blood Pressure 91/51 Blood Pressure 84/52 Blood Pressure 84/52 Blood Pressure 93/65 Blood Pressure 102/60 O2 Sat by Pulse Oximetry 99 O2 Sat by Pulse Oximetry 100 O2 Sat by Pulse Oximetry 100 O2 Sat by Pulse Oximetry 99 O2 Sat by Pulse Oximetry 96 O2 Sat by Pulse Oximetry 100 O2 Sat by Pulse Oximetry 100 O2 Sat by Pulse Oximetry 100 O2 Sat by Pulse Oximetry 100 O2 Sat by Pulse Oximetry 100 O2 Sat by Pulse Oximetry 100 O2 Sat by Pulse Oximetry 100 O2 Sat by Pulse Oximetry 100 O2 Sat by Pulse Oximetry 99 O2 Sat by Pulse Oximetry 99 O2 Sat by Pulse Oximetry 100 O2 Sat by Pulse Oximetry 100 O2 Sat by Pulse Oximetry 100 O2 Sat by Pulse Oximetry 100 O2 Sat by Pulse Oximetry 100 O2 Sat by Pulse Oximetry 100 O2 Sat by Pulse Oximetry 100 O2 Sat by Pulse Oximetry 100 O2 Sat by Pulse Oximetry 95 O2 Sat by Pulse Oximetry 100 O2 Sat by Pulse Oximetry 100 O2 Sat by Pulse Oximetry 100 O2 Sat by Pulse Oximetry 100 O2 Sat by Pulse Oximetry 100 O2 Sat by Pulse Oximetry 100 Intake and Output: Intake & Output 01/13/24 01/14/24 01/15/24 01/16/24 11:59 11:59 11:59 11:59 Intake Total 2307 / 2307 700 / 700 Balance 2307 / 2307 700 / 700 Physical Exam Oriented: Normal Eyes: Normal Nose: Normal Throat: Dry Respiratory: Diminished Cardiovascular: Tachycardia and Edema Auscultation: Bowel Sounds: Normal Tenderness: Epigastric Skin: Other (diffuse pallor) Psychiatric: Anxiety Mood Description: Anxious Speech Pattern: Clear and Appropriate Laboratory and Diagnostics 01/15/24 05:50 01/15/24 04:03 Labs: 01/14/24 11:48 Urine,Clean Catch Urine Culture - Preliminary Laboratory WBC 6.9 X10^3/uL (3.6-10.0) 01/15/24 05:50 RBC 1.96 X10^6/uL (3.5-5.4) L 01/15/24 05:50 Hgb 6.0 g/dL (12.0-16.0) L* 01/15/24 05:50 Hct 17.7 % (36.0-47.0) L* 01/15/24 05:50 MCV 90.6 fL (80.0-100.0) 01/15/24 05:50 MCH 30.5 pg (27.0-34.0) 01/15/24 05:50 MCHC 33.7 g/dL (33.0-35.0) 01/15/24 05:50 RDW 18.3 % (11.6-16.5) H 01/15/24 05:50 Plt Count 168 X10^3/uL (150.0-450.0) 01/15/24 05:50 MPV 10.9 fL (7.4-11.0) 01/15/24 05:50 Neut % (Auto) 61.9 % (42.0-75.0) 01/15/24 05:50 Lymph % (Auto) 27.1 % (21.0-51.0) 01/15/24 05:50 [place] % (Auto) 8.5 % (0.0-13.0) 01/15/24 05:50 Eos % (Auto) 1.7 % (0.9-2.9) 01/15/24 05:50 Baso % (Auto) 0.8 % (0.2-1.0) 01/15/24 05:50 Neut # (Auto) 4.3 x10^3/uL (2.2-4.8) 01/15/24 05:50 Lymph # (Auto) 1.9 X10^3/uL (1.3-2.9) 01/15/24 05:50 [place] # (Auto) 0.6 x10^3/uL (0.3-0.8) 01/15/24 05:50 Eos # (Auto) 0.1 x10^3/uL (0.0-0.2) 01/15/24 05:50 Baso # (Auto) 0.1 X10^3/uL (0.0-0.1) 01/15/24 05:50 Absolute Nucleated RBC 0.1 /100WBC 01/15/24 05:50 Absolute Retic 0.1260 10^6/uL 01/15/24 04:03 Percent Retic 6.51 % (0.8-2.2) H 01/15/24 04:03 PT 55.1 SECONDS (11.8-14.3) 01/15/24 10:35 INR Target Range - 01/15/24 10:35 INR 6.64 (0.8-1.3) H* 01/15/24 10:35 Sodium 143 mmol/L (136-145) 01/15/24 04:03 Corrected Sodium TNP 01/15/24 04:03 Potassium 3.9 mmol/L (3.5-5.1) 01/15/24 04:03 Chloride 108 mmol/L (98-107) H 01/15/24 04:03 Carbon Dioxide 30.6 mmol/L (21-32) 01/15/24 04:03 BUN 39 mg/dL (7-18) H 01/15/24 04:03 Creatinine 1.56 mg/dL (0.55-1.02) H 01/15/24 04:03 Est GFR (MDRD) Af Amer 41 (>60) L 01/15/24 04:03 Est GFR (MDRD) Non-Af 34 (>60) L 01/15/24 04:03 Glucose 104 mg/dL (65-99) H 01/15/24 04:03 Calcium 7.6 mg/dL (8.5-10.1) L 01/15/24 04:03 Corrected Calcium 9.4 mg/dL (8.5-10.1) 01/15/24 04:03 Magnesium 2.6 mg/dL (2.0-2.9) 01/15/24 04:03 Iron 69 ug/dL (50-175) 01/15/24 08:10 TIBC 229 ug/dL (250-450) L 01/15/24 08:10 Transferrin 181 mg/dL (202-364) L 01/15/24 08:10 Ferritin 23 ng/mL (8-252) 01/15/24 08:10 Total Bilirubin 1.60 mg/dL (0.2-1.0) H 01/15/24 04:03 AST 31 Units/L (15-37) 01/15/24 04:03 ALT 15 Units/L (12-78) 01/15/24 04:03 Alkaline Phosphatase 50 Units/L (46-116) 01/15/24 04:03 Creatine Kinase 51 Units/L (26-192) 01/14/24 10:05 Troponin I High Sens 12.0 ng/L (4.0-60.0) 01/14/24 10:05 B-Natriuretic Peptide 301 pg/mL (0-79) H 01/14/24 10:05 Total Protein 5.0 g/dL (6.4-8.2) L 01/15/24 04:03 Albumin 1.7 g/dL (3.4-5.0) L 01/15/24 04:03 Globulin 3.3 g/dL (2.5-4.5) 01/15/24 04:03 Albumin/Globulin Ratio 0.5 Ratio (1.1-2.1) L 01/15/24 04:03 Vitamin B12 772 pg/mL (193-986) 01/15/24 08:10 Folate 4.3 ng/mL (>8.6) L 01/15/24 08:10 Specimen Type Clean catch urine 01/14/24 11:48 Urine Color Yellow (YELLOW) 01/14/24 11:48 Urine Appearance Hazy (CLEAR) 01/14/24 11:48 Urine pH 5.0 (5.0 - 8.0) 01/14/24 11:48 Ur Specific [place] 1.015 (1.000-1.030) 01/14/24 11:48 Urine Protein 2+ (NEGATIVE) 01/14/24 11:48 Urine Glucose (UA) Negative (NEGATIVE) 01/14/24 11:48 Urine Ketones Negative (NEGATIVE) 01/14/24 11:48 Urine Blood 1+ (NEGATIVE) 01/14/24 11:48 Urine Nitrite Negative (NEGATIVE) 01/14/24 11:48 Urine Bilirubin Negative (NEGATIVE) 01/14/24 11:48 Urine Urobilinogen Normal (NORMAL) 01/14/24 11:48 Ur Leukocyte Esterase 3+ (NEGATIVE) 01/14/24 11:48 Urine RBC 3-5 /HPF (0-3) A 01/14/24 11:48 Urine WBC 20-30 /HPF (0-5) A 01/14/24 11:48 Ur Squamous Epith Cells Rare /HPF (NEGATIVE) 01/14/24 11:48 Amorphous Sediment 1+ /HPF (NEGATIVE) 01/14/24 11:48 Urine Bacteria 1+ /HPF (NEGATIVE) 01/14/24 11:48 Urine Mucus Rare /HPF (NEGATIVE) 01/14/24 11:48 Ur Culture Indicated? Yes/culture set up 01/14/24 11:48 Stl Occult Blood (IFOB) Positive (NEGATIVE) A 01/15/24 08:55 Blood Type A POSITIVE 01/14/24 10:25 Antibody Screen Negative 01/14/24 10:25 Crossmatch See Detail 01/14/24 10:25 Plan (1) Symptomatic anemia: Status: Acute Plan: TRANSFUSE PRBC PER PROTCOL ANEMIA PANEL FROM ADMISSION LABS, OCCULT STOOL, PT, INR GI CONSULT, BID PROTONIX REPEAT AM CXR BP CONTROL, VERIFY HOME MEDICATION CARDIAC RATE CONTROL, SUPPLEMENTAL O2 HOLD NSAIDS, ANTICOAGULANTS (2) Atrial fibrillation with rapid ventricular response: Status: Acute Plan: ICU CARDIAC RATE CONTROL, SUPPLEMENTAL O2 (3) Lower extremity edema: Status: Acute (4) GI bleed: Status: Acute (5) care home current use of anticoagulant: Status: Acute
[2024-01-15] MEDS: NS 500 ML IV 500 ML IV ONE ×3 (21:14→21:15)
[2024-01-15 22:27] LABS: HEMATOCRIT 24.4 % (36.0-47.0); HEMOGLOBIN 8.3 g/dL (12.0-16.0)
[2024-01-16] MEDS: ZOFRAN INJ 4 MG VIAL ONE (04:34)
[2024-01-16 05:18] LABS: BASOPHILS % (AUTO) 0.8 % (0.2-1.0); EOSINOPHILS # (AUTO) 0.2 x10^3/uL (0.0-0.2); EOSINOPHILS % (AUTO) 2.8 % (0.9-2.9); HEMATOCRIT 22.3 % (36.0-47.0); HEMOGLOBIN 7.7 g/dL (12.0-16.0); LYMPHOCYTES # (AUTO) 1.5 X10^3/uL (1.3-2.9); LYMPHOCYTES % (AUTO) 24.7 % (21.0-51.0); MEAN CORPUSCULAR HEMOGLOBIN 30.9 pg (27.0-34.0); MEAN CORPUSCULAR HGB CONC 34.5 g/dL (33.0-35.0); MEAN CORPUSCULAR VOLUME 89.5 fL (80.0-100.0); MEAN PLATELET VOLUME 10.1 fL (7.4-11.0); MONOCYTES # (AUTO) 0.4 x10^3/uL (0.3-0.8); MONOCYTES % (AUTO) 7.2 % (0.0-13.0); NEUTROPHILS # (AUTO) 3.9 x10^3/uL (2.2-4.8); NEUTROPHILS % (AUTO) 64.5 % (42.0-75.0); PLATELET COUNT 135 X10^3/uL (150.0-450.0); RED BLOOD COUNT 2.49 X10^6/uL (3.5-5.4); RED CELL DISTRIBUTION WIDTH 16.8 % (11.6-16.5); WHITE BLOOD COUNT 6.1 X10^3/uL (3.6-10.0)
[2024-01-16 05:31] LABS: ALANINE AMINOTRANSFERASE 14 Units/L (12-78); ALBUMIN 1.7 g/dL (3.4-5.0); ALKALINE PHOSPHATASE 53 Units/L (46-116); ASPARTATE AMINO TRANSFERASE 34 Units/L (15-37); BLOOD UREA NITROGEN 45 mg/dL (7-18); CALCIUM 7.5 mg/dL (8.5-10.1); CARBON DIOXIDE 26.8 mmol/L (21-32); CHLORIDE 108 mmol/L (98-107); COR CA(FOR HYPOALB) 9.3 mg/dL (8.5-10.1); CREATININE 1.54 mg/dL (0.55-1.02); GLUCOSE 104 mg/dL (65-99); POTASSIUM 3.6 mmol/L (3.5-5.1); SODIUM 143 mmol/L (136-145); TOTAL PROTEIN 5.1 g/dL (6.4-8.2); eGFR NON BLACK RACES 35 (>60)
[2024-01-16] MEDS ORDERED: CONSULT PHARMACY - POTASSIUM & MAGNESIUM XX SCH (06:00)
[2024-01-16] MEDS: K-DUR TAB 20 MEQ PO SCH (06:17)
--- NOTE | 2024-01-16 06:52 | RAD ---
EXAM:Portable chestHISTORY:Shortness of breathCOMPARISON:01/14/2024FINDINGS:Ther e is a pacemaker present in the left axilla. Heart is enlarged. No congestive heart failure is noted. Aubrie are normal. Lung fowler are clear. No pleural effusions are identified. Bony thorax is unremarkable.IMPRESSION:Cardiomegaly without congestive heart failureLungs clearTHIS IS AN ELECTRONICALLY VERIFIED FINAL REPORT01/16/2024 6:42 AM - Electronically signed by Wicho Wise MD
[2024-01-16 07:19] LABS: INR 3.26 (0.8-1.3)
[2024-01-16] MEDS: LASIX PO SCH (07:56)
[2024-01-16] MEDS: TOPROL XL PO SCH (08:42)
[2024-01-16] MEDS: ULTRAM PO PRN (08:46)
[2024-01-16] MEDS: NS 1,000 ML IV 1,000 ML ONE (08:48)
[2024-01-16] MEDS: TRANEXAMIC ACID 1,000 MG in NS 100 ML IV 100 ML IV SCH ×2 (08:48→13:24)
--- NOTE | 2024-01-16 08:54 | DR.PROGNOT ---
HOSPITAL PROGRESS NOTE Progress Note for Day of: Progress Note Date: 01/16/24 Chief Complaint Chief Complaint: Had large black bowel movement, no abdominal pain, no nausea or vomiting. INR is 3.26. Hemoglobin 7.7. Past Medical Family Social History Allergies: Allergies No Known Allergies Allergy (Verified 12/26/23 09:55) Vital Signs Vital Signs: Vital Signs Temperature 98.1 F Pulse Rate 116 Pulse Rate 109 Pulse Rate 106 Pulse Rate 106 Pulse Rate 104 Pulse Rate 106 Pulse Rate 102 Pulse Rate 106 Pulse Rate 106 Respiratory Rate 25 Respiratory Rate 25 Respiratory Rate 20 Respiratory Rate 26 Respiratory Rate 19 Respiratory Rate 20 Respiratory Rate 16 Respiratory Rate 16 Respiratory Rate 16 Respiratory Rate 22 Blood Pressure 112/73 Blood Pressure 107/65 Blood Pressure 108/67 Blood Pressure 109/62 Blood Pressure 107/71 Blood Pressure 115/60 Blood Pressure 92/54 O2 Sat by Pulse Oximetry 99 O2 Sat by Pulse Oximetry 100 O2 Sat by Pulse Oximetry 100 O2 Sat by Pulse Oximetry 100 O2 Sat by Pulse Oximetry 100 O2 Sat by Pulse Oximetry 100 O2 Sat by Pulse Oximetry 100 O2 Sat by Pulse Oximetry 96 O2 Sat by Pulse Oximetry 99 Physical Exam Oriented: Normal Eyes: Normal Nose: Normal Throat: Dry Respiratory: Diminished Cardiovascular: Tachycardia and Edema GI:Auscultation: Normal GI:Palpation: Normal GI: Tenderness: Epigastric and Other (Soft and flat abdomen without significant tenderness, bowel sounds present..) Skin: Other (diffuse pallor) Psychiatric: Anxiety Mood Description: Anxious Speech Pattern: Clear and Appropriate Laboratory and Diagnostics 01/16/24 04:03 01/16/24 04:03 Labs: 01/14/24 11:48 Urine,Clean Catch Urine Culture - Preliminary Laboratory WBC 6.1 X10^3/uL (3.6-10.0) 01/16/24 04:03 RBC 2.49 X10^6/uL (3.5-5.4) L 01/16/24 04:03 Hgb 7.7 g/dL (12.0-16.0) L 01/16/24 04:03 Hct 22.3 % (36.0-47.0) L 01/16/24 04:03 MCV 89.5 fL (80.0-100.0) 01/16/24 04:03 MCH 30.9 pg (27.0-34.0) 01/16/24 04:03 MCHC 34.5 g/dL (33.0-35.0) 01/16/24 04:03 RDW 16.8 % (11.6-16.5) H 01/16/24 04:03 Plt Count 135 X10^3/uL (150.0-450.0) L 01/16/24 04:03 MPV 10.1 fL (7.4-11.0) 01/16/24 04:03 Neut % (Auto) 64.5 % (42.0-75.0) 01/16/24 04:03 Lymph % (Auto) 24.7 % (21.0-51.0) 01/16/24 04:03 [place] % (Auto) 7.2 % (0.0-13.0) 01/16/24 04:03 Eos % (Auto) 2.8 % (0.9-2.9) 01/16/24 04:03 Baso % (Auto) 0.8 % (0.2-1.0) 01/16/24 04:03 Neut # (Auto) 3.9 x10^3/uL (2.2-4.8) 01/16/24 04:03 Lymph # (Auto) 1.5 X10^3/uL (1.3-2.9) 01/16/24 04:03 [place] # (Auto) 0.4 x10^3/uL (0.3-0.8) 01/16/24 04:03 Eos # (Auto) 0.2 x10^3/uL (0.0-0.2) 01/16/24 04:03 Baso # (Auto) 0.0 X10^3/uL (0.0-0.1) 01/16/24 04:03 Absolute Nucleated RBC 0.3 /100WBC 01/16/24 04:03 Absolute Retic 0.1260 10^6/uL 01/15/24 04:03 Percent Retic 6.51 % (0.8-2.2) H 01/15/24 04:03 PT 32.0 SECONDS (11.8-14.3) 01/16/24 07:00 INR Target Range - 01/16/24 07:00 INR 3.26 (0.8-1.3) H 01/16/24 07:00 Sodium 143 mmol/L (136-145) 01/16/24 04:03 Corrected Sodium TNP 01/16/24 04:03 Potassium 3.6 mmol/L (3.5-5.1) 01/16/24 04:03 Chloride 108 mmol/L (98-107) H 01/16/24 04:03 Carbon Dioxide 26.8 mmol/L (21-32) 01/16/24 04:03 BUN 45 mg/dL (7-18) H 01/16/24 04:03 Creatinine 1.54 mg/dL (0.55-1.02) H 01/16/24 04:03 Est GFR (MDRD) Af Amer 42 (>60) L 01/16/24 04:03 Est GFR (MDRD) Non-Af 35 (>60) L 01/16/24 04:03 Glucose 104 mg/dL (65-99) H 01/16/24 04:03 Calcium 7.5 mg/dL (8.5-10.1) L 01/16/24 04:03 Corrected Calcium 9.3 mg/dL (8.5-10.1) 01/16/24 04:03 Magnesium 2.6 mg/dL (2.0-2.9) 01/15/24 04:03 Iron 69 ug/dL (50-175) 01/15/24 08:10 TIBC 229 ug/dL (250-450) L 01/15/24 08:10 Transferrin 181 mg/dL (202-364) L 01/15/24 08:10 Ferritin 23 ng/mL (8-252) 01/15/24 08:10 Total Bilirubin 1.50 mg/dL (0.2-1.0) H 01/16/24 04:03 AST 34 Units/L (15-37) 01/16/24 04:03 ALT 14 Units/L (12-78) 01/16/24 04:03 Alkaline Phosphatase 53 Units/L (46-116) 01/16/24 04:03 Creatine Kinase 51 Units/L (26-192) 01/14/24 10:05 Troponin I High Sens 12.0 ng/L (4.0-60.0) 01/14/24 10:05 B-Natriuretic Peptide 301 pg/mL (0-79) H 01/14/24 10:05 Total Protein 5.1 g/dL (6.4-8.2) L 01/16/24 04:03 Albumin 1.7 g/dL (3.4-5.0) L 01/16/24 04:03 Globulin 3.4 g/dL (2.5-4.5) 01/16/24 04:03 Albumin/Globulin Ratio 0.5 Ratio (1.1-2.1) L 01/16/24 04:03 Vitamin B12 772 pg/mL (193-986) 01/15/24 08:10 Folate 4.3 ng/mL (>8.6) L 01/15/24 08:10 Specimen Type Clean catch urine 01/14/24 11:48 Urine Color Yellow (YELLOW) 01/14/24 11:48 Urine Appearance Hazy (CLEAR) 01/14/24 11:48 Urine pH 5.0 (5.0 - 8.0) 01/14/24 11:48 Ur Specific [place] 1.015 (1.000-1.030) 01/14/24 11:48 Urine Protein 2+ (NEGATIVE) 01/14/24 11:48 Urine Glucose (UA) Negative (NEGATIVE) 01/14/24 11:48 Urine Ketones Negative (NEGATIVE) 01/14/24 11:48 Urine Blood 1+ (NEGATIVE) 01/14/24 11:48 Urine Nitrite Negative (NEGATIVE) 01/14/24 11:48 Urine Bilirubin Negative (NEGATIVE) 01/14/24 11:48 Urine Urobilinogen Normal (NORMAL) 01/14/24 11:48 Ur Leukocyte Esterase 3+ (NEGATIVE) 01/14/24 11:48 Urine RBC 3-5 /HPF (0-3) A 01/14/24 11:48 Urine WBC 20-30 /HPF (0-5) A 01/14/24 11:48 Ur Squamous Epith Cells Rare /HPF (NEGATIVE) 01/14/24 11:48 Amorphous Sediment 1+ /HPF (NEGATIVE) 01/14/24 11:48 Urine Bacteria 1+ /HPF (NEGATIVE) 01/14/24 11:48 Urine Mucus Rare /HPF (NEGATIVE) 01/14/24 11:48 Ur Culture Indicated? Yes/culture set up 01/14/24 11:48 Stl Occult Blood (IFOB) Positive (NEGATIVE) A 01/15/24 08:55 Blood Type A POSITIVE 01/14/24 10:25 Antibody Screen Negative 01/14/24 10:25 Crossmatch See Detail 01/14/24 10:25 Assessment and Plan 1: Severe anemia with melanotic stool. For upper endoscopy in the morning, awaiting INR to go down further. Problem Patient Problems: Patient Problems (Updated 01/15/24 @ 19:41 by RAFAEL ALMONTE) Symptomatic anemia (Acute) D64.9 Atrial fibrillation with rapid ventricular response (Acute) I48.91
[2024-01-16] MEDS: TRANEXAMIC ACID IV SCH ×2 (10:05→13:25)
[2024-01-16] MEDS: NS IV SCH ×2 (10:05→13:25)
[2024-01-16 12:18] LABS: HEMATOCRIT 22.4 % (36.0-47.0); HEMOGLOBIN 7.7 g/dL (12.0-16.0)
[2024-01-16] MEDS: ZOFRAN INJ 4 MG VIAL IVP PRN (12:40)
[2024-01-16] MEDS: NORCO 5/325 MG TAB PO PRN (13:01)
--- NOTE | 2024-01-16 17:57 | PCM.PROG ---
Progress Note Progress Note for Day of Date of Exam: 01/16/24 Subjective Subjective: This is a 78-year-old female who was an ER admission after presenting with co feeling weak and tired over the past few weeks. The patient was seen at another institution with anemia. She was discharged on iron pills. Since then, the patient was having black stool. Actually, the black stool was even before taking the pills. She stopped taking these pills and is still having black tarry stool. The patient was complaining of epigastric pain. The patient is admitted at this time with symptomatic anemia. She denies any nausea or vomiting. No known history of peptic ulcer disease in the past. The patient is not taking any NSAID medication, but she is taking anticoagulant Xarelto as part of her treatment of AFIB. Pts HGB in ER was 5.0. Pt was admitted for evaluation and treatment of GI bleed and treatment of AFIB with RVR. Pt has received 4 units prbc, with hgb 7.7 and positive occult stool. Pt is on protonix 40mg IV bid, Dr Khan consulted for GI bleed. Pts xarelto is on hold due to anemia and GI bleeding. Pt co right upper abdominal pain this am, reports she's had this for a while prior to admission. Pts metoprolol was restarted at 25mg for rate control, will increase as need. Past Medical Family Social History Allergies: Allergies No Known Allergies Allergy (Verified 12/26/23 09:55) Vital Signs and I&O's Vital Signs: Vital Signs Temperature 98.0 F Temperature 97.8 F Pulse Rate 97 Pulse Rate 100 Pulse Rate 90 Pulse Rate 89 Pulse Rate 93 Pulse Rate 93 Pulse Rate 92 Pulse Rate 100 Pulse Rate 92 Pulse Rate 93 Pulse Rate 94 Pulse Rate 95 Pulse Rate 98 Pulse Rate 115 Pulse Rate 118 Pulse Rate 128 Pulse Rate 113 Pulse Rate 110 Pulse Rate 110 Pulse Rate 134 Pulse Rate 127 Pulse Rate 117 Pulse Rate 125 Pulse Rate 118 Pulse Rate 137 Pulse Rate 131 Pulse Rate 132 Pulse Rate 140 Pulse Rate 120 Pulse Rate 125 Respiratory Rate 15 Respiratory Rate 18 Respiratory Rate 13 Respiratory Rate 13 Respiratory Rate 14 Respiratory Rate 14 Respiratory Rate 12 Respiratory Rate 13 Respiratory Rate 13 Respiratory Rate 12 Respiratory Rate 12 Respiratory Rate 12 Respiratory Rate 14 Respiratory Rate 20 Respiratory Rate 20 Respiratory Rate 14 Respiratory Rate 25 Respiratory Rate 16 Respiratory Rate 21 Respiratory Rate 15 Respiratory Rate 17 Respiratory Rate 17 Respiratory Rate 24 Respiratory Rate 21 Respiratory Rate 29 Respiratory Rate 14 Respiratory Rate 18 Respiratory Rate 17 Respiratory Rate 17 Respiratory Rate 25 Respiratory Rate 17 Respiratory Rate 17 Respiratory Rate 25 Respiratory Rate 18 Blood Pressure 107/56 Blood Pressure 102/56 Blood Pressure 99/56 Blood Pressure 112/55 Blood Pressure 107/77 Blood Pressure 113/64 Blood Pressure 109/73 Blood Pressure 118/64 O2 Sat by Pulse Oximetry 98 O2 Sat by Pulse Oximetry 99 O2 Sat by Pulse Oximetry 100 O2 Sat by Pulse Oximetry 100 O2 Sat by Pulse Oximetry 100 O2 Sat by Pulse Oximetry 100 O2 Sat by Pulse Oximetry 99 O2 Sat by Pulse Oximetry 99 O2 Sat by Pulse Oximetry 99 O2 Sat by Pulse Oximetry 99 O2 Sat by Pulse Oximetry 99 O2 Sat by Pulse Oximetry 99 O2 Sat by Pulse Oximetry 99 O2 Sat by Pulse Oximetry 99 O2 Sat by Pulse Oximetry 100 O2 Sat by Pulse Oximetry 99 O2 Sat by Pulse Oximetry 100 O2 Sat by Pulse Oximetry 100 O2 Sat by Pulse Oximetry 100 O2 Sat by Pulse Oximetry 100 O2 Sat by Pulse Oximetry 99 O2 Sat by Pulse Oximetry 100 O2 Sat by Pulse Oximetry 100 O2 Sat by Pulse Oximetry 100 O2 Sat by Pulse Oximetry 99 O2 Sat by Pulse Oximetry 99 O2 Sat by Pulse Oximetry 100 O2 Sat by Pulse Oximetry 100 O2 Sat by Pulse Oximetry 100 O2 Sat by Pulse Oximetry 100 Intake and Output: Intake & Output 01/14/24 01/15/24 01/16/24 01/17/24 11:59 11:59 11:59 11:59 Intake Total 2307 / 2307 2800 / 2800 240 / 240 Balance 2307 / 2307 2800 / 2800 240 / 240 Physical Exam Oriented: Normal Eyes: Normal Nose: Normal Throat: Dry Respiratory: Diminished Cardiovascular: Tachycardia and Edema Auscultation: Bowel Sounds: Normal Tenderness: Epigastric and Other (Soft and flat abdomen without significant tenderness, bowel sounds present..) Skin: Other (diffuse pallor) Psychiatric: Anxiety Mood Description: Anxious Speech Pattern: Clear and Appropriate Laboratory and Diagnostics 01/16/24 12:08 01/16/24 04:03 Labs: 01/14/24 11:48 Urine,Clean Catch Urine Culture - Final Escherichia Coli Laboratory WBC 6.1 X10^3/uL (3.6-10.0) 01/16/24 04:03 RBC 2.49 X10^6/uL (3.5-5.4) L 01/16/24 04:03 Hgb 7.7 g/dL (12.0-16.0) L 01/16/24 12:08 Hct 22.4 % (36.0-47.0) L 01/16/24 12:08 MCV 89.5 fL (80.0-100.0) 01/16/24 04:03 MCH 30.9 pg (27.0-34.0) 01/16/24 04:03 MCHC 34.5 g/dL (33.0-35.0) 01/16/24 04:03 RDW 16.8 % (11.6-16.5) H 01/16/24 04:03 Plt Count 135 X10^3/uL (150.0-450.0) L 01/16/24 04:03 MPV 10.1 fL (7.4-11.0) 01/16/24 04:03 Neut % (Auto) 64.5 % (42.0-75.0) 01/16/24 04:03 Lymph % (Auto) 24.7 % (21.0-51.0) 01/16/24 04:03 [place] % (Auto) 7.2 % (0.0-13.0) 01/16/24 04:03 Eos % (Auto) 2.8 % (0.9-2.9) 01/16/24 04:03 Baso % (Auto) 0.8 % (0.2-1.0) 01/16/24 04:03 Neut # (Auto) 3.9 x10^3/uL (2.2-4.8) 01/16/24 04:03 Lymph # (Auto) 1.5 X10^3/uL (1.3-2.9) 01/16/24 04:03 [place] # (Auto) 0.4 x10^3/uL (0.3-0.8) 01/16/24 04:03 Eos # (Auto) 0.2 x10^3/uL (0.0-0.2) 01/16/24 04:03 Baso # (Auto) 0.0 X10^3/uL (0.0-0.1) 01/16/24 04:03 Absolute Nucleated RBC 0.3 /100WBC 01/16/24 04:03 Absolute Retic 0.1260 10^6/uL 01/15/24 04:03 Percent Retic 6.51 % (0.8-2.2) H 01/15/24 04:03 PT 32.0 SECONDS (11.8-14.3) 01/16/24 07:00 INR Target Range - 01/16/24 07:00 INR 3.26 (0.8-1.3) H 01/16/24 07:00 Sodium 143 mmol/L (136-145) 01/16/24 04:03 Corrected Sodium TNP 01/16/24 04:03 Potassium 3.6 mmol/L (3.5-5.1) 01/16/24 04:03 Chloride 108 mmol/L (98-107) H 01/16/24 04:03 Carbon Dioxide 26.8 mmol/L (21-32) 01/16/24 04:03 BUN 45 mg/dL (7-18) H 01/16/24 04:03 Creatinine 1.54 mg/dL (0.55-1.02) H 01/16/24 04:03 Est GFR (MDRD) Af Amer 42 (>60) L 01/16/24 04:03 Est GFR (MDRD) Non-Af 35 (>60) L 01/16/24 04:03 Glucose 104 mg/dL (65-99) H 01/16/24 04:03 Calcium 7.5 mg/dL (8.5-10.1) L 01/16/24 04:03 Corrected Calcium 9.3 mg/dL (8.5-10.1) 01/16/24 04:03 Magnesium 2.6 mg/dL (2.0-2.9) 01/15/24 04:03 Iron 69 ug/dL (50-175) 01/15/24 08:10 TIBC 229 ug/dL (250-450) L 01/15/24 08:10 Transferrin 181 mg/dL (202-364) L 01/15/24 08:10 Ferritin 23 ng/mL (8-252) 01/15/24 08:10 Total Bilirubin 1.50 mg/dL (0.2-1.0) H 01/16/24 04:03 AST 34 Units/L (15-37) 01/16/24 04:03 ALT 14 Units/L (12-78) 01/16/24 04:03 Alkaline Phosphatase 53 Units/L (46-116) 01/16/24 04:03 Creatine Kinase 51 Units/L (26-192) 01/14/24 10:05 Troponin I High Sens 12.0 ng/L (4.0-60.0) 01/14/24 10:05 B-Natriuretic Peptide 301 pg/mL (0-79) H 01/14/24 10:05 Total Protein 5.1 g/dL (6.4-8.2) L 01/16/24 04:03 Albumin 1.7 g/dL (3.4-5.0) L 01/16/24 04:03 Globulin 3.4 g/dL (2.5-4.5) 01/16/24 04:03 Albumin/Globulin Ratio 0.5 Ratio (1.1-2.1) L 01/16/24 04:03 Vitamin B12 772 pg/mL (193-986) 01/15/24 08:10 Folate 4.3 ng/mL (>8.6) L 01/15/24 08:10 Specimen Type Clean catch urine 01/14/24 11:48 Urine Color Yellow (YELLOW) 01/14/24 11:48 Urine Appearance Hazy (CLEAR) 01/14/24 11:48 Urine pH 5.0 (5.0 - 8.0) 01/14/24 11:48 Ur Specific [place] 1.015 (1.000-1.030) 01/14/24 11:48 Urine Protein 2+ (NEGATIVE) 01/14/24 11:48 Urine Glucose (UA) Negative (NEGATIVE) 01/14/24 11:48 Urine Ketones Negative (NEGATIVE) 01/14/24 11:48 Urine Blood 1+ (NEGATIVE) 01/14/24 11:48 Urine Nitrite Negative (NEGATIVE) 01/14/24 11:48 Urine Bilirubin Negative (NEGATIVE) 01/14/24 11:48 Urine Urobilinogen Normal (NORMAL) 01/14/24 11:48 Ur Leukocyte Esterase 3+ (NEGATIVE) 01/14/24 11:48 Urine RBC 3-5 /HPF (0-3) A 01/14/24 11:48 Urine WBC 20-30 /HPF (0-5) A 01/14/24 11:48 Ur Squamous Epith Cells Rare /HPF (NEGATIVE) 01/14/24 11:48 Amorphous Sediment 1+ /HPF (NEGATIVE) 01/14/24 11:48 Urine Bacteria 1+ /HPF (NEGATIVE) 01/14/24 11:48 Urine Mucus Rare /HPF (NEGATIVE) 01/14/24 11:48 Ur Culture Indicated? Yes/culture set up 01/14/24 11:48 Stl Occult Blood (IFOB) Positive (NEGATIVE) A 01/15/24 08:55 Blood Type A POSITIVE 01/14/24 10:25 Antibody Screen Negative 01/14/24 10:25 Crossmatch See Detail 01/14/24 10:25 Plan (1) Symptomatic anemia: Status: Acute Plan: TRANSFUSE PRBC PER PROTCOL ANEMIA PANEL FROM ADMISSION LABS, OCCULT STOOL, PT, INR GI CONSULT, BID PROTONIX REPEAT AM CXR BP CONTROL, VERIFY HOME MEDICATION CARDIAC RATE CONTROL, SUPPLEMENTAL O2 HOLD NSAIDS, ANTICOAGULANTS (2) Atrial fibrillation with rapid ventricular response: Status: Acute Plan: ICU CARDIAC RATE CONTROL, SUPPLEMENTAL O2 (3) Lower extremity edema: Status: Acute (4) GI bleed: Status: Acute (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
[2024-01-17] MEDS: HIBICLENS WASH EXT ONE (04:39)
[2024-01-17 05:01] LABS: BASOPHILS # (AUTO) 0.1 X10^3/uL (0.0-0.1); BASOPHILS % (AUTO) 1.1 % (0.2-1.0); EOSINOPHILS # (AUTO) 0.2 x10^3/uL (0.0-0.2); HEMATOCRIT 21.7 % (36.0-47.0); HEMOGLOBIN 7.4 g/dL (12.0-16.0); LYMPHOCYTES # (AUTO) 1.2 X10^3/uL (1.3-2.9); LYMPHOCYTES % (AUTO) 23.4 % (21.0-51.0); MEAN CORPUSCULAR HEMOGLOBIN 30.7 pg (27.0-34.0); MEAN CORPUSCULAR VOLUME 90.3 fL (80.0-100.0); MEAN PLATELET VOLUME 10.1 fL (7.4-11.0); MONOCYTES # (AUTO) 0.4 x10^3/uL (0.3-0.8); NEUTROPHILS # (AUTO) 3.1 x10^3/uL (2.2-4.8); NEUTROPHILS % (AUTO) 63.5 % (42.0-75.0); PLATELET COUNT 149 X10^3/uL (150.0-450.0); RED BLOOD COUNT 2.41 X10^6/uL (3.5-5.4); RED CELL DISTRIBUTION WIDTH 17.4 % (11.6-16.5); WHITE BLOOD COUNT 4.9 X10^3/uL (3.6-10.0)
[2024-01-17 05:10] LABS: ALANINE AMINOTRANSFERASE 18 Units/L (12-78); ALBUMIN 1.7 g/dL (3.4-5.0); ALKALINE PHOSPHATASE 54 Units/L (46-116); ASPARTATE AMINO TRANSFERASE 42 Units/L (15-37); BLOOD UREA NITROGEN 37 mg/dL (7-18); CALCIUM 7.4 mg/dL (8.5-10.1); CARBON DIOXIDE 27.2 mmol/L (21-32); CHLORIDE 108 mmol/L (98-107); COR CA(FOR HYPOALB) 9.2 mg/dL (8.5-10.1); CREATININE 1.55 mg/dL (0.55-1.02); GLUCOSE 100 mg/dL (65-99); POTASSIUM 3.8 mmol/L (3.5-5.1); SODIUM 143 mmol/L (136-145); TOTAL PROTEIN 4.9 g/dL (6.4-8.2); eGFR NON BLACK RACES 35 (>60)
[2024-01-17] MEDS: NS 1,000 ML IV 1,000 ML ONE (07:27)
[2024-01-17] MEDS: DIPRIVAN VIAL 20 ML ONE (07:52)
--- NOTE | 2024-01-17 09:56 | DR.CONSULT ---
CONSULT Consultation for Day of: Date: 01/17/24 Chief Complaint Chief Complaint: sob/weak/edema Allergies Allergies Allergy/AdvReac Type Severity Reaction Status Date / Time No Known Allergies Allergy Verified 12/26/23 09:55 History of Present Illness History of Present Illness: hx obtained from pt/daughter- long hx of afib- has pacemaker- recent cath w/o cad- ef 50-55%, mild mr- bp low, hr up- found to have Hg 5- given 4 units of prbcs- getting more- still edematous- egd today/colo saturday- off DOAC- bb were held due to low bp but back on now at low dose Past Medical History Past Medical History: Hypertension Past Surgical History Surgical History: Tonsillectomy and Other Family History Family Medical History: Diabetes Mellitus, Heart Failure and Hypertension Social History Does patient currently use any type of tobacco product: No Have you used tobacco products in the last 12 months: No Type of Tobacco Use: None Does any household member use tobacco: No Alcohol Use: None Drug Use: None Medications Home Medications: No Known Allergies Allergy (Verified 12/26/23 09:55) Physical Exam Vital Signs: Vital Signs Temperature 98.0 F Temperature 97.8 F Temperature 87.8 F Temperature 97.6 F Temperature 98.0 F Temperature 97.8 F Pulse Rate 124 Pulse Rate 122 Pulse Rate 105 Pulse Rate 101 Pulse Rate 107 Pulse Rate 95 Pulse Rate 90 Pulse Rate 88 Pulse Rate 86 Pulse Rate 81 Pulse Rate 83 Respiratory Rate 19 Respiratory Rate 12 Respiratory Rate 15 Respiratory Rate 12 Respiratory Rate 12 Respiratory Rate 13 Respiratory Rate 19 Respiratory Rate 17 Respiratory Rate 11 Respiratory Rate 11 Respiratory Rate 18 Respiratory Rate 24 Blood Pressure 115/59 Blood Pressure 109/55 Blood Pressure 115/57 Blood Pressure 108/57 Blood Pressure 96/72 Blood Pressure 96/50 Blood Pressure 100/55 Blood Pressure 102/58 Blood Pressure 101/58 Blood Pressure 98/55 Blood Pressure 99/55 O2 Sat by Pulse Oximetry 98 O2 Sat by Pulse Oximetry 97 O2 Sat by Pulse Oximetry 96 O2 Sat by Pulse Oximetry 96 O2 Sat by Pulse Oximetry 100 O2 Sat by Pulse Oximetry 100 O2 Sat by Pulse Oximetry 100 O2 Sat by Pulse Oximetry 100 O2 Sat by Pulse Oximetry 99 O2 Sat by Pulse Oximetry 100 O2 Sat by Pulse Oximetry 100 alert ox3 nad irreg irreg /fast clear lungs soft sandeep/hsm too 2 plus edema legs Labs: hg 5 up to 7.4 after 4 units, cr 1.55 trop negative bnp 300 alb 1.7 ekg: afib/rvr cxr: big heart / pacer/ no chf Plan (1) Symptomatic anemia: Status: Acute (2) Atrial fibrillation with rapid ventricular response: Status: Acute Plan: low bp will make pushing BB hard- will add digoxin- check tsh- filling her tank with more blood will prob slow hr too- push bb as bp allows (3) Lower extremity edema: Status: Acute (4) GI bleed: Status: Acute (5) prison current use of anticoagulant: Status: Acute
[2024-01-17 10:02] LABS: INR 1.76 (0.8-1.3)
[2024-01-17] MEDS: LANOXIN PO SCH (10:25)
[2024-01-17] MEDS ORDERED: NS 500 ML IV 500 ML IV ONE (10:30)
[2024-01-17] MEDS: NS 1,000 ML IV 1,000 ML IV SCH ×2 (14:06→17:19)
--- NOTE | 2024-01-17 14:49 | CT ---
EXAM:CT abdomen and pelvis without IV contrastHISTORY:ABDOMINAL PAIN, ANEMIA, GI BLEED; HTN, AFIB, PACEMAKER, CATARACT, TONSIL -COMPARISON:None.TECHNIQUE:Multiple axial images of the abdomen and pelvis were obtained from the lung bases to the pubic symphysis without the administration of IV contrast. Dose reduction techniques including Automated Exposure Control (AEC) and adjustment of mA and kV were utilized.FINDINGS:The visualized portions of the lung bases reveal small pleural effusions, [id number]-left. Associated atelectasis is seen. Calcified granuloma is seen in the left lung base.There is cirrhosis and moderate ascites. Moderate anasarca is present. Spleen is enlarged measuring 16.8 cm in length.Gallbladder has mild wall calcification suggesting porcelain gallbladder. In the neck of the gallbladder there is a probable stone measuring 1.3 cm. No suggestion of acute cholecystitis. No biliary ductal dilation.No pancreatic abnormality is seen.The adrenal glands appear normal.No hydronephrosis or renal abnormality is seen. Ureters and bladder appear normal.No evidence of bowel obstruction. Colon is not well distended and is poorly evaluated due to presence of the ascites. Mild right-sided colitis is not excluded. Appendix is not definitely seen but there is no suggestion of pericecal inflammation.No abnormalities are seen of the reproductive organs.Abdominal aorta is normal in size.No suspicious lymphadenopathy.No free intraperitoneal air is seen.No acute bony abnormality is seen.IMPRESSION:Cirrhosis is seen with splenomegaly likely from portal venous hypertension. 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
[2024-01-17 15:16] LABS: HEMATOCRIT 23.9 % (36.0-47.0); HEMOGLOBIN 8.2 g/dL (12.0-16.0)
[2024-01-18] MEDS: PHENERGAN INJ 25 MG IM PRN (05:27)
[2024-01-18 07:14] LABS: BASOPHILS % (AUTO) 0.7 % (0.2-1.0); EOSINOPHILS # (AUTO) 0.2 x10^3/uL (0.0-0.2); EOSINOPHILS % (AUTO) 2.3 % (0.9-2.9); HEMATOCRIT 27.5 % (36.0-47.0); HEMOGLOBIN 9.4 g/dL (12.0-16.0); LYMPHOCYTES # (AUTO) 0.9 X10^3/uL (1.3-2.9); LYMPHOCYTES % (AUTO) 12.5 % (21.0-51.0); MEAN CORPUSCULAR HEMOGLOBIN 31.2 pg (27.0-34.0); MEAN CORPUSCULAR HGB CONC 34.1 g/dL (33.0-35.0); MEAN CORPUSCULAR VOLUME 91.5 fL (80.0-100.0); MEAN PLATELET VOLUME 10.3 fL (7.4-11.0); MONOCYTES # (AUTO) 0.4 x10^3/uL (0.3-0.8); MONOCYTES % (AUTO) 6.4 % (0.0-13.0); NEUTROPHILS # (AUTO) 5.4 x10^3/uL (2.2-4.8); NEUTROPHILS % (AUTO) 78.1 % (42.0-75.0); PLATELET COUNT 182 X10^3/uL (150.0-450.0); RED BLOOD COUNT 3.01 X10^6/uL (3.5-5.4); RED CELL DISTRIBUTION WIDTH 16.9 % (11.6-16.5); WHITE BLOOD COUNT 6.9 X10^3/uL (3.6-10.0)
[2024-01-18 07:17] LABS: ALANINE AMINOTRANSFERASE 27 Units/L (12-78); ALBUMIN 1.9 g/dL (3.4-5.0); ALKALINE PHOSPHATASE 68 Units/L (46-116); ASPARTATE AMINO TRANSFERASE 62 Units/L (15-37); BLOOD UREA NITROGEN 32 mg/dL (7-18); CALCIUM 7.9 mg/dL (8.5-10.1); CARBON DIOXIDE 25.9 mmol/L (21-32); CHLORIDE 106 mmol/L (98-107); COR CA(FOR HYPOALB) 9.6 mg/dL (8.5-10.1); CREATININE 1.61 mg/dL (0.55-1.02); GLUCOSE 102 mg/dL (65-99); SODIUM 142 mmol/L (136-145); TOTAL PROTEIN 5.7 g/dL (6.4-8.2); eGFR NON BLACK RACES 33 (>60)
--- NOTE | 2024-01-18 11:08 | PCM.PROG ---
Progress Note Progress Note for Day of Date of Exam: 01/18/24 Subjective Subjective: Patient is a 78-year-old female admitted for GI bleed, acute cystitis, atrial fibrillation, and generalized weakness. This morning she is resting comfortably in bed. No acute events overnight. She is on PPI therapy and will anticoagulant is being held. She has received a total of 5 units packed red blood cells and hemoglobin has stabilized. She also has a history of atrial fibrillation. Cardiology is following herDr. Orantes. Labs/imaging: WBC 6.9, hemoglobin 9.4, platelets 182, sodium 142, potassium 4, creatinine 1.61, glucose 102, INR 1.76. Patient did have CT abdomen pelvis that ruled out acute cholecystitis. She is currently being treated with antibiotics Rocephin for acute cystitis. Patient does have a colonoscopy scheduled for Saturday. Otherwise, we will continue with current treatment plan. Continue closely monitor and follow-up labs. Time spent for clinical assessment, reviewing labs/imaging, physical exam, decision making and documentation greater than 45 mins. Past Medical Family Social History Allergies: Allergies No Known Allergies Allergy (Verified 12/26/23 09:55) Review of Systems ROS changes noted: see HPI Vital Signs and I&O's Vital Signs: Vital Signs Temperature 97.8 F Temperature 97.9 F Pulse Rate 96 Pulse Rate 98 Pulse Rate 98 Pulse Rate 90 Pulse Rate 91 Pulse Rate 96 Pulse Rate 93 Pulse Rate 87 Pulse Rate 79 Respiratory Rate 20 Respiratory Rate 15 Respiratory Rate 28 Respiratory Rate 29 Respiratory Rate 13 Respiratory Rate 19 Respiratory Rate 26 Respiratory Rate 23 Blood Pressure 101/57 Blood Pressure 101/57 Blood Pressure 106/79 Blood Pressure 112/60 Blood Pressure 102/55 Blood Pressure 107/60 Blood Pressure 104/54 Blood Pressure 101/52 O2 Sat by Pulse Oximetry 100 O2 Sat by Pulse Oximetry 99 O2 Sat by Pulse Oximetry 100 O2 Sat by Pulse Oximetry 98 O2 Sat by Pulse Oximetry 94 O2 Sat by Pulse Oximetry 97 O2 Sat by Pulse Oximetry 98 O2 Sat by Pulse Oximetry 97 Intake and Output: Intake & Output 01/15/24 01/16/24 01/17/24 01/18/24 23:59 23:59 23:59 23:59 Intake Total 2901 / 2901 1990 2496 / 2496 122 / 122 Output Total 1550 / 1550 Balance 2901 / 2901 1990 946 / 946 122 / 122 Physical Exam Oriented: Normal Eyes: Normal Nose: Normal Throat: Dry Respiratory: Diminished Cardiovascular: Normal Auscultation: Bowel Sounds: Normal Tenderness: Epigastric and Other (Soft and flat abdomen without significant tenderness, bowel sounds present..) Skin: Other (diffuse pallor) Psychiatric: Anxiety Mood Description: Anxious Speech Pattern: Clear and Appropriate Laboratory and Diagnostics 01/18/24 05:04 01/18/24 05:04 Labs: 01/14/24 11:48 Urine,Clean Catch Urine Culture - Final Escherichia Coli Laboratory WBC 6.9 X10^3/uL (3.6-10.0) 01/18/24 05:04 RBC 3.01 X10^6/uL (3.5-5.4) L 01/18/24 05:04 Hgb 9.4 g/dL (12.0-16.0) L 01/18/24 05:04 Hct 27.5 % (36.0-47.0) L 01/18/24 05:04 MCV 91.5 fL (80.0-100.0) 01/18/24 05:04 MCH 31.2 pg (27.0-34.0) 01/18/24 05:04 MCHC 34.1 g/dL (33.0-35.0) 01/18/24 05:04 RDW 16.9 % (11.6-16.5) H 01/18/24 05:04 Plt Count 182 X10^3/uL (150.0-450.0) 01/18/24 05:04 MPV 10.3 fL (7.4-11.0) 01/18/24 05:04 Neut % (Auto) 78.1 % (42.0-75.0) H 01/18/24 05:04 Lymph % (Auto) 12.5 % (21.0-51.0) L 01/18/24 05:04 [place] % (Auto) 6.4 % (0.0-13.0) 01/18/24 05:04 Eos % (Auto) 2.3 % (0.9-2.9) 01/18/24 05:04 Baso % (Auto) 0.7 % (0.2-1.0) 01/18/24 05:04 Neut # (Auto) 5.4 x10^3/uL (2.2-4.8) H 01/18/24 05:04 Lymph # (Auto) 0.9 X10^3/uL (1.3-2.9) L 01/18/24 05:04 [place] # (Auto) 0.4 x10^3/uL (0.3-0.8) 01/18/24 05:04 Eos # (Auto) 0.2 x10^3/uL (0.0-0.2) 01/18/24 05:04 Baso # (Auto) 0.0 X10^3/uL (0.0-0.1) 01/18/24 05:04 Absolute Nucleated RBC 0.4 /100WBC 01/18/24 05:04 Absolute Retic 0.1260 10^6/uL 01/15/24 04:03 Percent Retic 6.51 % (0.8-2.2) H 01/15/24 04:03 PT 20.0 SECONDS (11.8-14.3) 01/17/24 09:45 INR Target Range - 01/17/24 09:45 INR 1.76 (0.8-1.3) H 01/17/24 09:45 Sodium 142 mmol/L (136-145) 01/18/24 05:04 Corrected Sodium TNP 01/18/24 05:04 Potassium 4.0 mmol/L (3.5-5.1) 01/18/24 05:04 Chloride 106 mmol/L (98-107) 01/18/24 05:04 Carbon Dioxide 25.9 mmol/L (21-32) 01/18/24 05:04 BUN 32 mg/dL (7-18) H 01/18/24 05:04 Creatinine 1.61 mg/dL (0.55-1.02) H 01/18/24 05:04 Est GFR (MDRD) Af Amer 40 (>60) L 01/18/24 05:04 Est GFR (MDRD) Non-Af 33 (>60) L 01/18/24 05:04 Glucose 102 mg/dL (65-99) H 01/18/24 05:04 Calcium 7.9 mg/dL (8.5-10.1) L 01/18/24 05:04 Corrected Calcium 9.6 mg/dL (8.5-10.1) 01/18/24 05:04 Magnesium 2.6 mg/dL (2.0-2.9) 01/15/24 04:03 Iron 69 ug/dL (50-175) 01/15/24 08:10 TIBC 229 ug/dL (250-450) L 01/15/24 08:10 Transferrin 181 mg/dL (202-364) L 01/15/24 08:10 Ferritin 23 ng/mL (8-252) 01/15/24 08:10 Total Bilirubin 1.10 mg/dL (0.2-1.0) H 01/18/24 05:04 AST 62 Units/L (15-37) H 01/18/24 05:04 ALT 27 Units/L (12-78) 01/18/24 05:04 Alkaline Phosphatase 68 Units/L (46-116) 01/18/24 05:04 Creatine Kinase 51 Units/L (26-192) 01/14/24 10:05 Troponin I High Sens 12.0 ng/L (4.0-60.0) 01/14/24 10:05 B-Natriuretic Peptide 301 pg/mL (0-79) H 01/14/24 10:05 Total Protein 5.7 g/dL (6.4-8.2) L 01/18/24 05:04 Albumin 1.9 g/dL (3.4-5.0) L 01/18/24 05:04 Globulin 3.8 g/dL (2.5-4.5) 01/18/24 05:04 Albumin/Globulin Ratio 0.5 Ratio (1.1-2.1) L 01/18/24 05:04 Vitamin B12 772 pg/mL (193-986) 01/15/24 08:10 Folate 4.3 ng/mL (>8.6) L 01/15/24 08:10 TSH 3rd Generation 1.352 uIU/mL (0.358-3.74) 01/17/24 04:30 Specimen Type Clean catch urine 01/14/24 11:48 Urine Color Yellow (YELLOW) 01/14/24 11:48 Urine Appearance Hazy (CLEAR) 01/14/24 11:48 Urine pH 5.0 (5.0 - 8.0) 01/14/24 11:48 Ur Specific [place] 1.015 (1.000-1.030) 01/14/24 11:48 Urine Protein 2+ (NEGATIVE) 01/14/24 11:48 Urine Glucose (UA) Negative (NEGATIVE) 01/14/24 11:48 Urine Ketones Negative (NEGATIVE) 01/14/24 11:48 Urine Blood 1+ (NEGATIVE) 01/14/24 11:48 Urine Nitrite Negative (NEGATIVE) 01/14/24 11:48 Urine Bilirubin Negative (NEGATIVE) 01/14/24 11:48 Urine Urobilinogen Normal (NORMAL) 01/14/24 11:48 Ur Leukocyte Esterase 3+ (NEGATIVE) 01/14/24 11:48 Urine RBC 3-5 /HPF (0-3) A 01/14/24 11:48 Urine WBC 20-30 /HPF (0-5) A 01/14/24 11:48 Ur Squamous Epith Cells Rare /HPF (NEGATIVE) 01/14/24 11:48 Amorphous Sediment 1+ /HPF (NEGATIVE) 01/14/24 11:48 Urine Bacteria 1+ /HPF (NEGATIVE) 01/14/24 11:48 Urine Mucus Rare /HPF (NEGATIVE) 01/14/24 11:48 Ur Culture Indicated? Yes/culture set up 01/14/24 11:48 Stl Occult Blood (IFOB) Positive (NEGATIVE) A 01/15/24 08:55 Digoxin 0.51 ng/mL (0.9-2) L 01/18/24 05:04 Blood Type A POSITIVE 01/14/24 10:25 Antibody Screen Negative 01/14/24 10:25 Crossmatch See Detail 01/14/24 10:25 Plan (1) Symptomatic anemia: Status: Acute Plan: TRANSFUSE PRBC PER PROTCOL ANEMIA PANEL FROM ADMISSION LABS, OCCULT STOOL, PT, INR GI CONSULT, BID PROTONIX REPEAT AM CXR BP CONTROL, VERIFY HOME MEDICATION CARDIAC RATE CONTROL, SUPPLEMENTAL O2 HOLD NSAIDS, ANTICOAGULANTS (2) Atrial fibrillation with rapid ventricular response: Status: Acute Plan: ICU CARDIAC RATE CONTROL, SUPPLEMENTAL O2 (3) Lower extremity edema: Status: Acute (4) GI bleed: Status: Acute (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
[2024-01-18] MEDS ORDERED: COLACE CAP 100 MG PO PRN (18:14)
[2024-01-18] MEDS ORDERED: MILK OF MAGNESIA PO PRN (18:14)
[2024-01-19 05:29] LABS: BASOPHILS % (AUTO) 0.8 % (0.2-1.0); EOSINOPHILS # (AUTO) 0.3 x10^3/uL (0.0-0.2); EOSINOPHILS % (AUTO) 5.1 % (0.9-2.9); HEMATOCRIT 24.5 % (36.0-47.0); HEMOGLOBIN 8.3 g/dL (12.0-16.0); LYMPHOCYTES # (AUTO) 0.9 X10^3/uL (1.3-2.9); LYMPHOCYTES % (AUTO) 17.6 % (21.0-51.0); MEAN CORPUSCULAR HEMOGLOBIN 31.1 pg (27.0-34.0); MEAN CORPUSCULAR VOLUME 91.6 fL (80.0-100.0); MONOCYTES # (AUTO) 0.5 x10^3/uL (0.3-0.8); MONOCYTES % (AUTO) 9.4 % (0.0-13.0); NEUTROPHILS # (AUTO) 3.6 x10^3/uL (2.2-4.8); NEUTROPHILS % (AUTO) 67.1 % (42.0-75.0); PLATELET COUNT 162 X10^3/uL (150.0-450.0); RED BLOOD COUNT 2.68 X10^6/uL (3.5-5.4); RED CELL DISTRIBUTION WIDTH 16.9 % (11.6-16.5); WHITE BLOOD COUNT 5.4 X10^3/uL (3.6-10.0)
[2024-01-19 05:36] LABS: INR 1.75 (0.8-1.3)
[2024-01-19 05:46] LABS: ALANINE AMINOTRANSFERASE 18 Units/L (12-78); ALBUMIN 1.6 g/dL (3.4-5.0); ALKALINE PHOSPHATASE 62 Units/L (46-116); ASPARTATE AMINO TRANSFERASE 44 Units/L (15-37); BLOOD UREA NITROGEN 28 mg/dL (7-18); CALCIUM 7.5 mg/dL (8.5-10.1); CARBON DIOXIDE 28.7 mmol/L (21-32); CHLORIDE 108 mmol/L (98-107); COR CA(FOR HYPOALB) 9.4 mg/dL (8.5-10.1); CREATININE 1.58 mg/dL (0.55-1.02); DIGOXIN 0.91 ng/mL (0.9-2); GLUCOSE 100 mg/dL (65-99); POTASSIUM 3.9 mmol/L (3.5-5.1); SODIUM 141 mmol/L (136-145); eGFR NON BLACK RACES 34 (>60)
[2024-01-19 08:53] VITALS: O2SAT 100
--- NOTE | 2024-01-19 10:25 | PCM.PROG ---
Progress Note Progress Note for Day of Date of Exam: 01/19/24 Subjective Subjective: Patient is a 78-year-old female admitted for GI bleed, acute cystitis, atrial fibrillation, and generalized weakness. She was examined this morning, resting in bed. No acute events overnight. She is on PPI therapy and will anticoagulant is being held. She has received a total of 5 units packed red blood cells and hemoglobin has stabilized. She also has a history of atrial fibrillation. Cardiology is following herDr. Orantes. Labs/imaging: WBC 5.4, hemoglobin 8.3, platelets 162, sodium 141, potassium 3.9, creatinine 1.58, glucose 100, INR 1.75. Patient did have CT abdomen pelvis that ruled out acute cholecystitis. She is currently being treated with antibiotics Rocephin for a cute cystitis. Patient does have a colonoscopy scheduled for Saturday. Otherwise, we will continue with current treatment plan. Continue closely monitor and follow-up labs. Time spent for clinical assessment, reviewing labs/imaging, physical exam, decision making and documentation greater than 45 mins. Past Medical Family Social History Allergies: Allergies No Known Allergies Allergy (Verified 12/26/23 09:55) Review of Systems ROS changes noted: see HPI Vital Signs and I&O's Vital Signs: Vital Signs Temperature 98.3 F Temperature 98 F Pulse Rate [Left] 89 Pulse Rate [Left] 68 Pulse Rate 89 Respiratory Rate 20 Respiratory Rate 26 Blood Pressure [Right Arm] 98/57 Blood Pressure [Right Arm] 92/52 O2 Sat by Pulse Oximetry 100 O2 Sat by Pulse Oximetry 99 Intake and Output: Intake & Output 01/16/24 01/17/24 01/18/24 01/19/24 23:59 23:59 23:59 23:59 Intake Total 1990 2496 / 2496 1055 / 1055 534 / 534 Output Total 1550 / 1550 200 / 200 325 / 325 Balance 1990 946 / 946 855 / 855 209 / 209 Physical Exam Oriented: Normal Eyes: Normal Nose: Normal Throat: Dry Respiratory: Diminished Cardiovascular: Normal Auscultation: Bowel Sounds: Normal Tenderness: Epigastric and Other (Soft and flat abdomen without significant tenderness, bowel sounds present..) Skin: Other (diffuse pallor) Psychiatric: Anxiety Mood Description: Anxious Speech Pattern: Clear and Appropriate Laboratory and Diagnostics 01/19/24 04:17 01/19/24 04:17 Labs: 01/14/24 11:48 Urine,Clean Catch Urine Culture - Final Escherichia Coli Laboratory WBC 5.4 X10^3/uL (3.6-10.0) 01/19/24 04:17 RBC 2.68 X10^6/uL (3.5-5.4) L 01/19/24 04:17 Hgb 8.3 g/dL (12.0-16.0) L 01/19/24 04:17 Hct 24.5 % (36.0-47.0) L 01/19/24 04:17 MCV 91.6 fL (80.0-100.0) 01/19/24 04:17 MCH 31.1 pg (27.0-34.0) 01/19/24 04:17 MCHC 34.0 g/dL (33.0-35.0) 01/19/24 04:17 RDW 16.9 % (11.6-16.5) H 01/19/24 04:17 Plt Count 162 X10^3/uL (150.0-450.0) 01/19/24 04:17 MPV 10.0 fL (7.4-11.0) 01/19/24 04:17 Neut % (Auto) 67.1 % (42.0-75.0) 01/19/24 04:17 Lymph % (Auto) 17.6 % (21.0-51.0) L 01/19/24 04:17 [place] % (Auto) 9.4 % (0.0-13.0) 01/19/24 04:17 Eos % (Auto) 5.1 % (0.9-2.9) H 01/19/24 04:17 Baso % (Auto) 0.8 % (0.2-1.0) 01/19/24 04:17 Neut # (Auto) 3.6 x10^3/uL (2.2-4.8) 01/19/24 04:17 Lymph # (Auto) 0.9 X10^3/uL (1.3-2.9) L 01/19/24 04:17 [place] # (Auto) 0.5 x10^3/uL (0.3-0.8) 01/19/24 04:17 Eos # (Auto) 0.3 x10^3/uL (0.0-0.2) H 01/19/24 04:17 Baso # (Auto) 0.0 X10^3/uL (0.0-0.1) 01/19/24 04:17 Absolute Nucleated RBC 0.1 /100WBC 01/19/24 04:17 Absolute Retic 0.1260 10^6/uL 01/15/24 04:03 Percent Retic 6.51 % (0.8-2.2) H 01/15/24 04:03 PT 19.9 SECONDS (11.8-14.3) 01/19/24 04:17 INR Target Range - 01/19/24 04:17 INR 1.75 (0.8-1.3) H 01/19/24 04:17 Sodium 141 mmol/L (136-145) 01/19/24 04:17 Corrected Sodium TNP 01/19/24 04:17 Potassium 3.9 mmol/L (3.5-5.1) 01/19/24 04:17 Chloride 108 mmol/L (98-107) H 01/19/24 04:17 Carbon Dioxide 28.7 mmol/L (21-32) 01/19/24 04:17 BUN 28 mg/dL (7-18) H 01/19/24 04:17 Creatinine 1.58 mg/dL (0.55-1.02) H 01/19/24 04:17 Est GFR (MDRD) Af Amer 41 (>60) L 01/19/24 04:17 Est GFR (MDRD) Non-Af 34 (>60) L 01/19/24 04:17 Glucose 100 mg/dL (65-99) H 01/19/24 04:17 Calcium 7.5 mg/dL (8.5-10.1) L 01/19/24 04:17 Corrected Calcium 9.4 mg/dL (8.5-10.1) 01/19/24 04:17 Magnesium 2.6 mg/dL (2.0-2.9) 01/15/24 04:03 Iron 69 ug/dL (50-175) 01/15/24 08:10 TIBC 229 ug/dL (250-450) L 01/15/24 08:10 Transferrin 181 mg/dL (202-364) L 01/15/24 08:10 Ferritin 23 ng/mL (8-252) 01/15/24 08:10 Total Bilirubin 0.90 mg/dL (0.2-1.0) 01/19/24 04:17 AST 44 Units/L (15-37) H 01/19/24 04:17 ALT 18 Units/L (12-78) 01/19/24 04:17 Alkaline Phosphatase 62 Units/L (46-116) 01/19/24 04:17 Creatine Kinase 51 Units/L (26-192) 01/14/24 10:05 Troponin I High Sens 12.0 ng/L (4.0-60.0) 01/14/24 10:05 B-Natriuretic Peptide 301 pg/mL (0-79) H 01/14/24 10:05 Total Protein 5.0 g/dL (6.4-8.2) L 01/19/24 04:17 Albumin 1.6 g/dL (3.4-5.0) L 01/19/24 04:17 Globulin 3.4 g/dL (2.5-4.5) 01/19/24 04:17 Albumin/Globulin Ratio 0.5 Ratio (1.1-2.1) L 01/19/24 04:17 Vitamin B12 772 pg/mL (193-986) 01/15/24 08:10 Folate 4.3 ng/mL (>8.6) L 01/15/24 08:10 TSH 3rd Generation 1.352 uIU/mL (0.358-3.74) 01/17/24 04:30 Specimen Type Clean catch urine 01/14/24 11:48 Urine Color Yellow (YELLOW) 01/14/24 11:48 Urine Appearance Hazy (CLEAR) 01/14/24 11:48 Urine pH 5.0 (5.0 - 8.0) 01/14/24 11:48 Ur Specific [place] 1.015 (1.000-1.030) 01/14/24 11:48 Urine Protein 2+ (NEGATIVE) 01/14/24 11:48 Urine Glucose (UA) Negative (NEGATIVE) 01/14/24 11:48 Urine Ketones Negative (NEGATIVE) 01/14/24 11:48 Urine Blood 1+ (NEGATIVE) 01/14/24 11:48 Urine Nitrite Negative (NEGATIVE) 01/14/24 11:48 Urine Bilirubin Negative (NEGATIVE) 01/14/24 11:48 Urine Urobilinogen Normal (NORMAL) 01/14/24 11:48 Ur Leukocyte Esterase 3+ (NEGATIVE) 01/14/24 11:48 Urine RBC 3-5 /HPF (0-3) A 01/14/24 11:48 Urine WBC 20-30 /HPF (0-5) A 01/14/24 11:48 Ur Squamous Epith Cells Rare /HPF (NEGATIVE) 01/14/24 11:48 Amorphous Sediment 1+ /HPF (NEGATIVE) 01/14/24 11:48 Urine Bacteria 1+ /HPF (NEGATIVE) 01/14/24 11:48 Urine Mucus Rare /HPF (NEGATIVE) 01/14/24 11:48 Ur Culture Indicated? Yes/culture set up 01/14/24 11:48 Stl Occult Blood (IFOB) Positive (NEGATIVE) A 01/15/24 08:55 Digoxin 0.91 ng/mL (0.9-2) 01/19/24 04:17 Blood Type A POSITIVE 01/14/24 10:25 Antibody Screen Negative 01/14/24 10:25 Crossmatch See Detail 01/14/24 10:25 Plan (1) Symptomatic anemia: Status: Acute Plan: TRANSFUSE PRBC PER PROTCOL ANEMIA PANEL FROM ADMISSION LABS, OCCULT STOOL, PT, INR GI CONSULT, BID PROTONIX BP CONTROL, VERIFY HOME MEDICATION CARDIAC RATE CONTROL, SUPPLEMENTAL O2 HOLD NSAIDS, ANTICOAGULANTS (2) Atrial fibrillation with rapid ventricular response: Status: Acute Plan: ICU CARDIAC RATE CONTROL, SUPPLEMENTAL O2 (3) Lower extremity edema: Status: Acute (4) GI bleed: Status: Acute (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
[2024-01-19] MEDS: SUPREP BOWEL PREP KIT PO SCH (17:24)
[2024-01-20 04:42] LABS: BASOPHILS % (AUTO) 0.8 % (0.2-1.0); EOSINOPHILS # (AUTO) 0.3 x10^3/uL (0.0-0.2); EOSINOPHILS % (AUTO) 5.7 % (0.9-2.9); HEMATOCRIT 26.3 % (36.0-47.0); HEMOGLOBIN 8.9 g/dL (12.0-16.0); LYMPHOCYTES # (AUTO) 0.9 X10^3/uL (1.3-2.9); LYMPHOCYTES % (AUTO) 20.6 % (21.0-51.0); MEAN CORPUSCULAR HGB CONC 34.1 g/dL (33.0-35.0); MEAN CORPUSCULAR VOLUME 91.1 fL (80.0-100.0); MEAN PLATELET VOLUME 9.6 fL (7.4-11.0); MONOCYTES # (AUTO) 0.5 x10^3/uL (0.3-0.8); MONOCYTES % (AUTO) 11.2 % (0.0-13.0); NEUTROPHILS # (AUTO) 2.7 x10^3/uL (2.2-4.8); NEUTROPHILS % (AUTO) 61.7 % (42.0-75.0); PLATELET COUNT 163 X10^3/uL (150.0-450.0); RED BLOOD COUNT 2.88 X10^6/uL (3.5-5.4); RED CELL DISTRIBUTION WIDTH 17.1 % (11.6-16.5); WHITE BLOOD COUNT 4.4 X10^3/uL (3.6-10.0)
[2024-01-20 04:45] LABS: INR 1.64 (0.8-1.3)
[2024-01-20 04:56] LABS: ALANINE AMINOTRANSFERASE 25 Units/L (12-78); ALBUMIN 1.5 g/dL (3.4-5.0); ALKALINE PHOSPHATASE 63 Units/L (46-116); ASPARTATE AMINO TRANSFERASE 55 Units/L (15-37); BLOOD UREA NITROGEN 23 mg/dL (7-18); CALCIUM 7.6 mg/dL (8.5-10.1); CARBON DIOXIDE 28.3 mmol/L (21-32); CHLORIDE 109 mmol/L (98-107); COR CA(FOR HYPOALB) 9.6 mg/dL (8.5-10.1); CREATININE 1.36 mg/dL (0.55-1.02); DIGOXIN 0.95 ng/mL (0.9-2); GLUCOSE 91 mg/dL (65-99); POTASSIUM 3.9 mmol/L (3.5-5.1); SODIUM 142 mmol/L (136-145); TOTAL PROTEIN 5.1 g/dL (6.4-8.2); eGFR NON BLACK RACES 40 (>60)
--- NOTE | 2024-01-20 08:46 | NOTE.SOAP ---
Soap Note Note for Day of Date of Exam: 01/20/24 Subjective Data Subjective Data: no issues Objective Data Objective Data: bp 110 P 60s ( tele: afib/vpaced hct 26 cr 1.3 Assessment Assessment: afib/gi bleed/better rate control with dig Plan Plan: colo today- resume xarelto pending bleeding risk assessment post colo/egd- cut back to smaller dig dose
[2024-01-20] MEDS: DIPRIVAN VIAL 20 ML ONE (10:15)
[2024-01-20 13:10] VITALS: BP 101/55; PULSE 70; RESP 26
[2024-01-20 14:03] VITALS: TEMP 98.1
[2024-01-21] MEDS ORDERED: LANOXIN PO SCH (09:00)
== END 2024-01-20 16:50 | disposition home or self-care (01) | DRG 378 ==
LOC: ER 09:27 → ICU 12:51
PROVIDERS: ADMIT Internal Medicine; ATTEND Internal Medicine

== ENCOUNTER 2024-03-05 09:31 | Inpatient (IN) ==
[2024-03-05 11:55] LABS: HEMATOCRIT 23.2 % (36.0-47.0); HEMOGLOBIN 7.9 g/dL (12.0-16.0); NEUTROPHILS # (AUTO) 4.2 x10^3/uL (2.2-4.8); WHITE BLOOD COUNT 5.7 X10^3/uL (3.6-10.0)
[2024-03-05] MEDS ORDERED: NS 1,000 ML IV 1,000 ML ONE (11:56)
[2024-03-05 11:58] LABS: BASOPHILS % (AUTO) 0.6 % (0.2-1.0); EOSINOPHILS # (AUTO) 0.1 x10^3/uL (0.0-0.2); EOSINOPHILS % (AUTO) 0.9 % (0.9-2.9); LYMPHOCYTES # (AUTO) 1.1 X10^3/uL (1.3-2.9); LYMPHOCYTES % (AUTO) 18.5 % (21.0-51.0); MEAN CORPUSCULAR HEMOGLOBIN 31.4 pg (27.0-34.0); MEAN CORPUSCULAR VOLUME 92.6 fL (80.0-100.0); MEAN PLATELET VOLUME 9.1 fL (7.4-11.0); MONOCYTES # (AUTO) 0.4 x10^3/uL (0.3-0.8); MONOCYTES % (AUTO) 7.5 % (0.0-13.0); NEUTROPHILS % (AUTO) 72.5 % (42.0-75.0); PLATELET COUNT 262 X10^3/uL (150.0-450.0); RED BLOOD COUNT 2.51 X10^6/uL (3.5-5.4); RED CELL DISTRIBUTION WIDTH 19.4 % (11.6-16.5)
[2024-03-05] MEDS: NS 1,000 ML IV 1,000 ML IV SCH ×2 (11:59→17:06)
[2024-03-05 12:11] LABS: ALANINE AMINOTRANSFERASE 31 Units/L (12-78); ALKALINE PHOSPHATASE 86 Units/L (46-116); ASPARTATE AMINO TRANSFERASE 66 Units/L (15-37); BLOOD UREA NITROGEN 29 mg/dL (7-18); CALCIUM 8.6 mg/dL (8.5-10.1); CARBON DIOXIDE 29.4 mmol/L (21-32); CHLORIDE 101 mmol/L (98-107); COR CA(FOR HYPOALB) 9.4 mg/dL (8.5-10.1); CREATININE 1.77 mg/dL (0.55-1.02); GLUCOSE 92 mg/dL (65-99); SODIUM 138 mmol/L (136-145); TOTAL PROTEIN 7.9 g/dL (6.4-8.2); eGFR NON BLACK RACES 30 (>60)
[2024-03-05 12:29] VITALS: BMI 28.8
--- NOTE | 2024-03-05 19:57 | DR.H&P ---
H&P History & Physical for Day of: H&P Date: 03/05/24 Chief Complaint Chief Complaint: pelvic pain History of Present Illness History of Present Illness: Patient is a 78-year-old female with a history of atrial fibrillation, pacemaker, cirrhosis, anemia, hypertension, GERD, directly admitted from clinic for further monitoring of pelvic hematoma and pain control. Patient also was noted to have an KARYN on labs. Labs/imaging: WBC 5.7, hemoglobin 7.9, platelets 262, sodium 138, potassium 4.0, creatinine 1.77, glucose 92, INR 2.17, total bilirubin 5.80. CT abdomen and pelvis was obtained that revealed: Contusive changes and presumed hematoma overlying the left iliac bone measuring 11.1 x 7.3 x 6.1 cm. Cirrhotic hepatic morphology with mild splenomegaly and moderate abdominal ascites. Similar cholelithiasis and mild prominence of the gallbladder. Will continue to monitor hemoglobin and trend to follow-up hematoma. Will consult general surgeryDr. Al for further evaluation. Will order gentle hydration with IV fluids normal saline at 75 mL/h. Monitor renal function. Hold anticoagulation. Restart home medications. Otherwise continue with current treatment plan. Continue closely monitor and follow-up labs in the morning. Past Medical History Past Medical History: Anemia, Cirrhosis, GERD and Hypertension Past Surgical History Surgical History: Other Family History Family Medical History: Cancer and Sudden Cardiac Social History Alcohol Use: None Medications Home Medications: Home Medications Medication Instructions Recorded Confirmed Type potassium chloride 20 mEq 20 meq PO QDAY 03/04/24 03/05/24 History tablet,extended release furosemide 20 mg tablet (Lasix) 40 mg PO BID 03/05/24 03/05/24 History metoprolol succinate 100 mg 100 mg PO QDAY 03/05/24 03/05/24 History tablet,extended release 24 hr tramadol 50 mg tablet 50 mg PO Q6H PRN 03/05/24 03/05/24 History Allergies Allergies Allergy/AdvReac Type Severity Reaction Status Date / Time No Known Allergies Allergy Verified 02/27/24 10:20 Labs 03/05/24 11:40 03/05/24 11:40 Labs: Laboratory WBC 5.7 X10^3/uL (3.6-10.0) 03/05/24 11:40 RBC 2.51 X10^6/uL (3.5-5.4) L 03/05/24 11:40 Hgb 7.9 g/dL (12.0-16.0) L 03/05/24 11:40 Hct 23.2 % (36.0-47.0) L 03/05/24 11:40 MCV 92.6 fL (80.0-100.0) 03/05/24 11:40 MCH 31.4 pg (27.0-34.0) 03/05/24 11:40 MCHC 34.0 g/dL (33.0-35.0) 03/05/24 11:40 RDW 19.4 % (11.6-16.5) H 03/05/24 11:40 Plt Count 262 X10^3/uL (150.0-450.0) 03/05/24 11:40 MPV 9.1 fL (7.4-11.0) 03/05/24 11:40 Neut % (Auto) 72.5 % (42.0-75.0) 03/05/24 11:40 Lymph % (Auto) 18.5 % (21.0-51.0) L 03/05/24 11:40 Stearns % (Auto) 7.5 % (0.0-13.0) 03/05/24 11:40 Eos % (Auto) 0.9 % (0.9-2.9) 03/05/24 11:40 Baso % (Auto) 0.6 % (0.2-1.0) 03/05/24 11:40 Neut # (Auto) 4.2 x10^3/uL (2.2-4.8) 03/05/24 11:40 Lymph # (Auto) 1.1 X10^3/uL (1.3-2.9) L 03/05/24 11:40 Stearns # (Auto) 0.4 x10^3/uL (0.3-0.8) 03/05/24 11:40 Eos # (Auto) 0.1 x10^3/uL (0.0-0.2) 03/05/24 11:40 Baso # (Auto) 0.0 X10^3/uL (0.0-0.1) 03/05/24 11:40 Absolute Nucleated RBC 0.1 /100WBC 03/05/24 11:40 Sodium 138 mmol/L (136-145) 03/05/24 11:40 Corrected Sodium TNP 03/05/24 11:40 Potassium 4.0 mmol/L (3.5-5.1) 03/05/24 11:40 Chloride 101 mmol/L (98-107) 03/05/24 11:40 Carbon Dioxide 29.4 mmol/L (21-32) 03/05/24 11:40 BUN 29 mg/dL (7-18) H 03/05/24 11:40 Creatinine 1.77 mg/dL (0.55-1.02) H 03/05/24 11:40 Est GFR (MDRD) Af Amer 36 (>60) L 03/05/24 11:40 Est GFR (MDRD) Non-Af 30 (>60) L 03/05/24 11:40 Glucose 92 mg/dL (65-99) 03/05/24 11:40 Calcium 8.6 mg/dL (8.5-10.1) 03/05/24 11:40 Corrected Calcium 9.4 mg/dL (8.5-10.1) 03/05/24 11:40 Total Bilirubin 5.80 mg/dL (0.2-1.0) H 03/05/24 11:40 AST 66 Units/L (15-37) H 03/05/24 11:40 ALT 31 Units/L (12-78) 03/05/24 11:40 Alkaline Phosphatase 86 Units/L (46-116) 03/05/24 11:40 Total Protein 7.9 g/dL (6.4-8.2) 03/05/24 11:40 Albumin 3.0 g/dL (3.4-5.0) L 03/05/24 11:40 Globulin 4.9 g/dL (2.5-4.5) H 03/05/24 11:40 Albumin/Globulin Ratio 0.6 Ratio (1.1-2.1) L 03/05/24 11:40 Review of Systems Constitutional: No Symptoms Reported Eyes: No Symptoms Reported ENT: No Symptoms Reported Respiratory: No Symptoms Reported Cardiovascular: No Symptoms Reported Gastrointestinal: Abdominal Pain Genitourinary: No Symptoms Reported Musculoskeletal: No Symptoms Reported Skin: Jaundice and Ecchymosis Neurological: No Symptoms Reported Physical Exam Vital Signs: Vital Signs Temperature 98.2 F Temperature 97.6 F Pulse Rate [Brachial] 67 Pulse Rate [Brachial] 64 Respiratory Rate 18 Respiratory Rate 18 Blood Pressure [Right Arm] 106/51 Blood Pressure [Right Arm] 124/53 O2 Sat by Pulse Oximetry 99 O2 Sat by Pulse Oximetry 100 Oriented: Normal Eyes: Normal Ear: Normal Nose: Normal Throat: Normal Respiratory: Clear Throughout Cardiovascular: Normal : Normal Auscultation: Bowel Sounds: Normal Palpation: Normal Tenderness: Normal Skin: Ecchymosis Musculoskeletal: Normal Psychiatric: Normal Mood Description: Calm and Appropriate Affect: Normal Speech Pattern: Clear and Appropriate Assessment/Plan (1) Hematoma: Status: Acute (2) Cirrhosis: Qualifiers: Ascites presence: unspecified Hepatic cirrhosis type: unspecified hepatic cirrhosis Qualified Code(s): K74.60 - Unspecified cirrhosis of liver Status: Acute (3) Contusion of pelvis: Qualifiers: Encounter type: initial encounter Qualified Code(s): S30.0XXA - Contusion of lower back and pelvis, initial encounter Status: Acute (4) Chronic anemia: Status: Acute (5) A-fib: Status: Acute (6) Pacemaker: Status: Acute (7) KARYN (acute kidney injury): Status: Acute (8) Symptomatic anemia: Status: Acute Review H&P Reviewed: Yes Patient was examined?: Yes
[2024-03-05] MEDS: ULTRAM PO PRN (21:04)
[2024-03-06 06:26] LABS: BASOPHILS % (AUTO) 0.9 % (0.2-1.0); EOSINOPHILS # (AUTO) 0.1 x10^3/uL (0.0-0.2); EOSINOPHILS % (AUTO) 1.4 % (0.9-2.9); LYMPHOCYTES # (AUTO) 0.7 X10^3/uL (1.3-2.9); LYMPHOCYTES % (AUTO) 17.5 % (21.0-51.0); MEAN CORPUSCULAR HEMOGLOBIN 31.4 pg (27.0-34.0); MEAN CORPUSCULAR HGB CONC 33.7 g/dL (33.0-35.0); MEAN CORPUSCULAR VOLUME 93.1 fL (80.0-100.0); MEAN PLATELET VOLUME 9.5 fL (7.4-11.0); MONOCYTES # (AUTO) 0.4 x10^3/uL (0.3-0.8); MONOCYTES % (AUTO) 10.1 % (0.0-13.0); NEUTROPHILS # (AUTO) 2.7 x10^3/uL (2.2-4.8); NEUTROPHILS % (AUTO) 70.1 % (42.0-75.0); PLATELET COUNT 208 X10^3/uL (150.0-450.0); RED BLOOD COUNT 2.04 X10^6/uL (3.5-5.4); RED CELL DISTRIBUTION WIDTH 20.2 % (11.6-16.5); WHITE BLOOD COUNT 3.9 X10^3/uL (3.6-10.0)
[2024-03-06 06:27] LABS: HEMOGLOBIN 6.4 g/dL (12.0-16.0)
[2024-03-06 06:30] LABS: ALBUMIN 2.3 g/dL (3.4-5.0); CALCIUM 8.2 mg/dL (8.5-10.1); CARBON DIOXIDE 28.2 mmol/L (21-32); COR CA(FOR HYPOALB) 9.6 mg/dL (8.5-10.1); CREATININE 1.71 mg/dL (0.55-1.02); POTASSIUM 3.7 mmol/L (3.5-5.1); TOTAL PROTEIN 6.4 g/dL (6.4-8.2)
[2024-03-06 06:59] LABS: ANISOCYTOSIS 1+; HYPOCHROMASIA SLIGHT; PLATELET MORPHOLOGY COMMENT NORMAL (NORMAL)
[2024-03-06 08:44] LABS: INR 1.82 (0.8-1.3)
[2024-03-06] MEDS: PROTONIX TAB 40 MG PO SCH (09:06)
[2024-03-06] MEDS: NS 500 ML IV 500 ML IV ONE (09:08)
[2024-03-06] MEDS: TOPROL XL PO SCH (09:08)
[2024-03-06] MEDS: LANOXIN or DIGITEK PO SCH (09:15)
[2024-03-06] MEDS: TOPROL XL PO ONE (09:16)
[2024-03-06] MEDS: ALBUMIN HUMAN 25%- 100 ML 100 ML IV SCH (13:28)
[2024-03-06] MEDS: LASIX IVP ONE (14:49)
[2024-03-06 19:16] LABS: HEMATOCRIT 25.4 % (36.0-47.0); HEMOGLOBIN 8.7 g/dL (12.0-16.0)
[2024-03-07 05:15] LABS: BASOPHILS % (AUTO) 0.7 % (0.2-1.0); EOSINOPHILS # (AUTO) 0.1 x10^3/uL (0.0-0.2); HEMATOCRIT 23.8 % (36.0-47.0); HEMOGLOBIN 8.1 g/dL (12.0-16.0); LYMPHOCYTES # (AUTO) 0.8 X10^3/uL (1.3-2.9); LYMPHOCYTES % (AUTO) 19.1 % (21.0-51.0); MEAN CORPUSCULAR HGB CONC 33.9 g/dL (33.0-35.0); MEAN CORPUSCULAR VOLUME 91.5 fL (80.0-100.0); MONOCYTES # (AUTO) 0.3 x10^3/uL (0.3-0.8); MONOCYTES % (AUTO) 7.1 % (0.0-13.0); NEUTROPHILS # (AUTO) 2.9 x10^3/uL (2.2-4.8); NEUTROPHILS % (AUTO) 71.1 % (42.0-75.0); PLATELET COUNT 214 X10^3/uL (150.0-450.0); RED BLOOD COUNT 2.61 X10^6/uL (3.5-5.4); RED CELL DISTRIBUTION WIDTH 19.6 % (11.6-16.5)
[2024-03-07 05:25] LABS: ALANINE AMINOTRANSFERASE 28 Units/L (12-78); ALBUMIN 2.5 g/dL (3.4-5.0); ALKALINE PHOSPHATASE 73 Units/L (46-116); ASPARTATE AMINO TRANSFERASE 56 Units/L (15-37); BLOOD UREA NITROGEN 20 mg/dL (7-18); CALCIUM 8.3 mg/dL (8.5-10.1); CARBON DIOXIDE 30.4 mmol/L (21-32); CHLORIDE 105 mmol/L (98-107); COR CA(FOR HYPOALB) 9.5 mg/dL (8.5-10.1); CREATININE 1.52 mg/dL (0.55-1.02); DIGOXIN 1.25 ng/mL (0.9-2); GLUCOSE 95 mg/dL (65-99); POTASSIUM 3.5 mmol/L (3.5-5.1); SODIUM 140 mmol/L (136-145); TOTAL PROTEIN 6.3 g/dL (6.4-8.2); eGFR NON BLACK RACES 35 (>60)
[2024-03-07] MEDS ORDERED: CONSULT PHARMACY - POTASSIUM & MAGNESIUM XX SCH (07:00)
--- NOTE | 2024-03-07 08:08 | PCM.PROG ---
Progress Note Progress Note for Day of Date of Exam: 03/06/24 Subjective Subjective: Patient is a 78-year-old female with a history of atrial fibrillation, pacemaker, cirrhosis, anemia, hypertension, GERD, admitted for monitoring of retroperitoneal hematoma, pain control, and acute kindey injury. This morning she is resting in bed. No acute events overnight. Labs/imaging: W BC 3.9, hemoglobin 6.4, platelets 208, sodium 139, potassium 3.7, creatinine 1.71, glucose 114, total bilirubin 4.00. Will order 2 units packed red blood cells to be transfused with lasix in between and order albumin. Continue to monitor hemoglobin and trend to follow-up hematoma. General surgeryDr. Al following. Change IV fluids normal saline to KVO. Monitor renal function. Hold anticoagulation. Home medications have been resumed. Otherwise continue with current treatment plan. Continue closely monitor and follow-up labs in the morning. Past Medical Family Social History Allergies: Allergies No Known Allergies Allergy (Verified 02/27/24 10:20) Review of Systems ROS changes noted: see HPI Vital Signs and I&O's Vital Signs: Vital Signs Temperature 98.0 F Pulse Rate [Brachial] 67 Respiratory Rate 18 Respiratory Rate 19 Blood Pressure [Right Arm] 99/55 O2 Sat by Pulse Oximetry 96 Intake and Output: Intake & Output 03/04/24 03/05/24 03/06/24 03/07/24 23:59 23:59 23:59 23:59 Intake Total 1657 / 1657 2824 / 2824 60 / 60 Output Total 100 / 100 Balance 1557 / 1557 2824 / 2824 60 / 60 Physical Exam Oriented: Normal Eyes: Normal Ear: Normal Nose: Normal Throat: Normal Respiratory: Normal Cardiovascular: Normal : Normal Auscultation: Bowel Sounds: Normal Tenderness: Normal Skin: Ecchymosis Musculoskeletal: Normal Psychiatric: Normal Mood Description: Calm and Appropriate Affect: Normal Speech Pattern: Clear and Appropriate Laboratory and Diagnostics 03/07/24 04:36 03/07/24 04:36 Labs: Laboratory WBC 4.0 X10^3/uL (3.6-10.0) 03/07/24 04:36 RBC 2.61 X10^6/uL (3.5-5.4) L 03/07/24 04:36 Hgb 8.1 g/dL (12.0-16.0) L 03/07/24 04:36 Hct 23.8 % (36.0-47.0) L 03/07/24 04:36 MCV 91.5 fL (80.0-100.0) 03/07/24 04:36 MCH 31.0 pg (27.0-34.0) 03/07/24 04:36 MCHC 33.9 g/dL (33.0-35.0) 03/07/24 04:36 RDW 19.6 % (11.6-16.5) H 03/07/24 04:36 Plt Count 214 X10^3/uL (150.0-450.0) 03/07/24 04:36 Plt Count Comment Adequate (ADEQUATE) 03/06/24 05:25 MPV 9.0 fL (7.4-11.0) 03/07/24 04:36 Neut % (Auto) 71.1 % (42.0-75.0) 03/07/24 04:36 Lymph % (Auto) 19.1 % (21.0-51.0) L 03/07/24 04:36 [place] % (Auto) 7.1 % (0.0-13.0) 03/07/24 04:36 Eos % (Auto) 2.0 % (0.9-2.9) 03/07/24 04:36 Baso % (Auto) 0.7 % (0.2-1.0) 03/07/24 04:36 Neut # (Auto) 2.9 x10^3/uL (2.2-4.8) 03/07/24 04:36 Lymph # (Auto) 0.8 X10^3/uL (1.3-2.9) L 03/07/24 04:36 Johnston # (Auto) 0.3 x10^3/uL (0.3-0.8) 03/07/24 04:36 Eos # (Auto) 0.1 x10^3/uL (0.0-0.2) 03/07/24 04:36 Baso # (Auto) 0.0 X10^3/uL (0.0-0.1) 03/07/24 04:36 Absolute Nucleated RBC 0.0 /100WBC 03/07/24 04:36 Plt Morphology Comment Normal (NORMAL) 03/06/24 05:25 RBC Morphology Abnormal (NORMAL) A 03/06/24 05:25 Hypochromasia Slight A 03/06/24 05:25 Anisocytosis 1+ A 03/06/24 05:25 PT 20.5 SECONDS (11.8-14.3) 03/06/24 05:25 INR Target Range - 03/06/24 05:25 INR 1.82 (0.8-1.3) H 03/06/24 05:25 Sodium 140 mmol/L (136-145) 03/07/24 04:36 Corrected Sodium TNP 03/07/24 04:36 Potassium 3.5 mmol/L (3.5-5.1) 03/07/24 04:36 Chloride 105 mmol/L (98-107) 03/07/24 04:36 Carbon Dioxide 30.4 mmol/L (21-32) 03/07/24 04:36 BUN 20 mg/dL (7-18) H 03/07/24 04:36 Creatinine 1.52 mg/dL (0.55-1.02) H 03/07/24 04:36 Est GFR (MDRD) Af Amer 43 (>60) L 03/07/24 04:36 Est GFR (MDRD) Non-Af 35 (>60) L 03/07/24 04:36 Glucose 95 mg/dL (65-99) 03/07/24 04:36 Calcium 8.3 mg/dL (8.5-10.1) L 03/07/24 04:36 Corrected Calcium 9.5 mg/dL (8.5-10.1) 03/07/24 04:36 Magnesium 1.4 mg/dL (2.0-2.9) L 03/07/24 04:36 Total Bilirubin 4.20 mg/dL (0.2-1.0) H 03/07/24 04:36 AST 56 Units/L (15-37) H 03/07/24 04:36 ALT 28 Units/L (12-78) 03/07/24 04:36 Alkaline Phosphatase 73 Units/L (46-116) 03/07/24 04:36 Total Protein 6.3 g/dL (6.4-8.2) L 03/07/24 04:36 Albumin 2.5 g/dL (3.4-5.0) L 03/07/24 04:36 Globulin 3.8 g/dL (2.5-4.5) 03/07/24 04:36 Albumin/Globulin Ratio 0.7 Ratio (1.1-2.1) L 03/07/24 04:36 Digoxin 1.25 ng/mL (0.9-2) 03/07/24 04:36 Blood Type A POSITIVE 03/06/24 06:53 Antibody Screen Negative 03/06/24 06:53 Crossmatch See Detail 03/06/24 06:53 Plan (1) Hematoma: Status: Acute (2) Cirrhosis: Status: Acute Qualifiers: Ascites presence: unspecified Hepatic cirrhosis type: unspecified hepatic cirrhosis Qualified Code(s): K74.60 - Unspecified cirrhosis of liver (3) Contusion of pelvis: Status: Acute Qualifiers: Encounter type: initial encounter Qualified Code(s): S30.0XXA - Contusion of lower back and pelvis, initial encounter (4) Chronic anemia: Status: Acute (5) A-fib: Status: Acute (6) Pacemaker: Status: Acute (7) KARYN (acute kidney injury): Status: Acute (8) Symptomatic anemia: Status: Acute
[2024-03-07] MEDS: NS 250 ML IV 250 ML IV ONE (08:59)
[2024-03-07] MEDS: TOPROL XL PO SCH (09:21)
[2024-03-07] MEDS: MAG-OX TAB PO SCH (09:38)
[2024-03-07] MEDS: KLOR-CON 10 MEQ TAB PO SCH (09:38)
[2024-03-07] MEDS: NS 1,000 ML IV 1,000 ML IV SCH (09:46)
[2024-03-07] MEDS: MILK OF MAGNESIA PO PRN (11:40)
[2024-03-07] MEDS: COLACE CAP 100 MG PO PRN (11:40)
--- NOTE | 2024-03-07 15:55 | RAD ---
EXAMINATION: CHEST, 1 VIEW HISTORY: dehydration, hematoma, symptomatic anemia ; . COMPARISON STUDY: 01/30/2024 TECHNIQUE: A single view of the chest was obtained. FINDINGS: Left-sided pacemaker. Heart size is enlarged. No acute infiltrates. There is no pneumothorax. Hil ar and mediastinal structures and bony structures are unremarkable. Hilar and mediastinal structures and bony structures unchanged. IMPRESSION: No acute process in the chest. THIS IS AN ELECTRONICALLY VERIFIED FINAL REPORT 03/07/2024 3:52 PM - Electronically signed by Nile Dukes MD
[2024-03-07] MEDS: PROTONIX INJ 40 MG VIAL IVP SCH (20:24)
[2024-03-08 06:43] LABS: BASOPHILS % (AUTO) 0.5 % (0.2-1.0); EOSINOPHILS # (AUTO) 0.1 x10^3/uL (0.0-0.2); EOSINOPHILS % (AUTO) 1.7 % (0.9-2.9); HEMATOCRIT 25.2 % (36.0-47.0); HEMOGLOBIN 8.5 g/dL (12.0-16.0); LYMPHOCYTES # (AUTO) 0.7 X10^3/uL (1.3-2.9); LYMPHOCYTES % (AUTO) 16.8 % (21.0-51.0); MEAN CORPUSCULAR HEMOGLOBIN 31.2 pg (27.0-34.0); MEAN CORPUSCULAR HGB CONC 33.7 g/dL (33.0-35.0); MEAN CORPUSCULAR VOLUME 92.6 fL (80.0-100.0); MONOCYTES # (AUTO) 0.3 x10^3/uL (0.3-0.8); MONOCYTES % (AUTO) 7.6 % (0.0-13.0); NEUTROPHILS # (AUTO) 3.1 x10^3/uL (2.2-4.8); NEUTROPHILS % (AUTO) 73.4 % (42.0-75.0); PLATELET COUNT 208 X10^3/uL (150.0-450.0); RED BLOOD COUNT 2.72 X10^6/uL (3.5-5.4); RED CELL DISTRIBUTION WIDTH 19.9 % (11.6-16.5); WHITE BLOOD COUNT 4.2 X10^3/uL (3.6-10.0)
[2024-03-08 06:58] LABS: ALANINE AMINOTRANSFERASE 27 Units/L (12-78); ALBUMIN 2.8 g/dL (3.4-5.0); ALKALINE PHOSPHATASE 68 Units/L (46-116); ASPARTATE AMINO TRANSFERASE 61 Units/L (15-37); BLOOD UREA NITROGEN 18 mg/dL (7-18); CALCIUM 8.6 mg/dL (8.5-10.1); CARBON DIOXIDE 28.4 mmol/L (21-32); CHLORIDE 105 mmol/L (98-107); COR CA(FOR HYPOALB) 9.6 mg/dL (8.5-10.1); CREATININE 1.43 mg/dL (0.55-1.02); GLUCOSE 103 mg/dL (65-99); MAGNESIUM 1.7 mg/dL (2.0-2.9); POTASSIUM 3.7 mmol/L (3.5-5.1); SODIUM 141 mmol/L (136-145); TOTAL PROTEIN 6.7 g/dL (6.4-8.2); eGFR NON BLACK RACES 38 (>60)
[2024-03-08] MEDS: CONSULT PHARMACY - POTASSIUM & MAGNESIUM XX SCH (13:42)
[2024-03-08] MEDS: MAG-OX TAB PO SCH (14:10)
[2024-03-08] MEDS: K-DUR TAB 20 MEQ PO SCH (14:10)
[2024-03-09 02:46] LABS: BILIRUBIN,URINE NEGATIVE (NEGATIVE); BLOOD/HEMOGLOBIN,URINE NEGATIVE (NEGATIVE); GLUCOSE, URINE NEGATIVE (NEGATIVE); KETONES,URINE NEGATIVE (NEGATIVE); LEUKOCYTE ESTERASE ,URINE 1+ (NEGATIVE); NITRITES,URINE NEGATIVE (NEGATIVE); PROTEIN,URINE 2+ (NEGATIVE); UROBILINOGEN,URINE 1+ (NORMAL)
[2024-03-09 02:52] LABS: APPEARANCE,URINE CLEAR (CLEAR); BACTERIA,URINE TRACE /HPF (NEGATIVE); COLOR,URINE AMBER (YELLOW); RBC,URINE NONE SEEN /HPF (0-3); SQUAMOUS EPITHELIAL CELL,UR RARE /HPF (NEGATIVE)
[2024-03-09 05:32] LABS: BASOPHILS % (AUTO) 0.8 % (0.2-1.0); EOSINOPHILS # (AUTO) 0.1 x10^3/uL (0.0-0.2); EOSINOPHILS % (AUTO) 2.4 % (0.9-2.9); HEMATOCRIT 25.5 % (36.0-47.0); HEMOGLOBIN 8.6 g/dL (12.0-16.0); LYMPHOCYTES # (AUTO) 0.6 X10^3/uL (1.3-2.9); LYMPHOCYTES % (AUTO) 14.7 % (21.0-51.0); MEAN CORPUSCULAR HEMOGLOBIN 31.4 pg (27.0-34.0); MEAN CORPUSCULAR HGB CONC 33.7 g/dL (33.0-35.0); MEAN CORPUSCULAR VOLUME 93.2 fL (80.0-100.0); MEAN PLATELET VOLUME 9.1 fL (7.4-11.0); MONOCYTES # (AUTO) 0.3 x10^3/uL (0.3-0.8); MONOCYTES % (AUTO) 7.4 % (0.0-13.0); NEUTROPHILS # (AUTO) 3.2 x10^3/uL (2.2-4.8); NEUTROPHILS % (AUTO) 74.7 % (42.0-75.0); PLATELET COUNT 202 X10^3/uL (150.0-450.0); RED BLOOD COUNT 2.73 X10^6/uL (3.5-5.4); RED CELL DISTRIBUTION WIDTH 20.1 % (11.6-16.5); WHITE BLOOD COUNT 4.3 X10^3/uL (3.6-10.0)
[2024-03-09 05:36] LABS: ALANINE AMINOTRANSFERASE 30 Units/L (12-78); ALBUMIN 2.9 g/dL (3.4-5.0); ALKALINE PHOSPHATASE 70 Units/L (46-116); ASPARTATE AMINO TRANSFERASE 62 Units/L (15-37); BLOOD UREA NITROGEN 15 mg/dL (7-18); CALCIUM 8.4 mg/dL (8.5-10.1); CARBON DIOXIDE 29.5 mmol/L (21-32); CHLORIDE 106 mmol/L (98-107); COR CA(FOR HYPOALB) 9.3 mg/dL (8.5-10.1); GLUCOSE 97 mg/dL (65-99); SODIUM 142 mmol/L (136-145); TOTAL PROTEIN 6.9 g/dL (6.4-8.2); eGFR NON BLACK RACES 39 (>60)
[2024-03-09 05:53] LABS: ANISOCYTOSIS 1+; PLATELET MORPHOLOGY COMMENT NORMAL (NORMAL)
[2024-03-09 15:40] VITALS: BP 123/58; PULSE 81; RESP 20; TEMP 97.9; O2SAT 99
== END 2024-03-09 16:05 | disposition home or self-care (01) | DRG 812 ==
LOC: MED/SURG
PROVIDERS: ADMIT Family Medicine; ATTEND Family Medicine
DX: K21.9 Gastro-esophageal reflux disease without esophagitis; I25.10 Atherosclerotic heart disease of native coronary artery without angina pectoris; R79.1 Abnormal coagulation profile; R26.89 Other abnormalities of gait and mobility; S30.0XXA Contusion of lower back and pelvis, initial encounter; D64.89 Other specified anemias; D63.8 Anemia in other chronic diseases classified elsewhere; I50.9 Heart failure, unspecified; Z91.81 History of falling; Z95.0 Presence of cardiac pacemaker; E86.0 Dehydration; I11.0 Hypertensive heart disease with heart failure; Z79.01 Long term (current) use of anticoagulants; K74.60 Unspecified cirrhosis of liver; E83.42 Hypomagnesemia; I48.91 Unspecified atrial fibrillation; N17.8 Other acute kidney failure